=== PATIENT | female | born 1985 | race African-American/Black ===

== ENCOUNTER 2016-10-08 20:51 | Emergency (ER) | payer SELFPAY ==
[~2016-10-08] VITALS: Ht 160 cm; Wt 66.5 kg
[~2016-10-08 20:51] MED LIST: MACR100C PO; PYRI200T4 PO
[2016-10-08 20:54] VITALS: BP 121/67; PULSE 56; RESP 16; TEMP 97.7; O2SAT 100
== END 2016-10-08 21:30 | disposition left against medical advice (07) ==
LOC: NED 20:51
DX: Z53.21 Procedure and treatment not carried out due to patient leaving prior to being seen by health care provider (principal)
CPT/HCPCS: 99281

== ENCOUNTER 2016-10-09 17:44 | Emergency (ER) | payer MEDICAID, OTHER ==
[~2016-10-09] VITALS: Ht 160 cm; Wt 65.0 kg
[2016-10-09 17:50] VITALS: BP 126/65; PULSE 60; RESP 14; TEMP 97.6; O2SAT 97
[2016-10-09 22:02] VITALS: BP 130/77; PULSE 62; RESP 16; O2SAT 98
[2016-10-09] MEDS ORDERED: SODIUM CHLORIDE 0.9% FLUSH 5 ML FLUSH IVF PRN (22:15)
[2016-10-09] MEDS ORDERED: ONDANSETRON HCL 4 MG/2 ML VIAL IVP ONE (22:15)
[2016-10-09 22:35] LABS: BACTERIA, URINE RARE /hpf; BLOOD, URINE MOD (NEG); COMMENT (UR) CULT NOT INDICATED; CULTURE IF INDICATED CULT NOT INDICATED; GLUCOSE,URINE NEG (NEG); KETONE, URINE NEG (NEG); NITRITE,URINE NEG (NEG); PH, URINE 6.5 (5.0-8.5); SQUAMOUS EPITHELIAL CELL URINE 2 /hpf (0-5); URINE COLOR LIGHT-YELLOW (YELLW/STRAW)
[2016-10-09 22:35] LABS: AUTOMATED NEUTROPHIL # 2.8 TH/MM3 (1.8-7.7); BASOPHIL % 0.3 % (0.0-2.0); EOSINOPHIL # 0.2 TH/MM3 (0-0.4); EOSINOPHIL % 2.5 % (0.0-4.0); HEMATOCRIT 35.4 % (35.0-46.0); HEMO FLAGS DIFF FINAL; LYMPHOCYTE # 3.5 TH/MM3 (1.0-4.8); MEAN CELL VOLUME 90.4 FL (80.0-100.0); MEAN CORPUSCULAR HEMOGLOBIN 30.8 PG (27.0-34.0); MEAN CORPUSCULAR HGB CONC 34.1 % (32.0-36.0); NEUT % 39.2 % (16.0-70.0); PLATELET COUNT 236 TH/MM3 (150-450); RED BLOOD COUNT 3.91 MIL/MM3 (4.00-5.30); RED CELL DISTRIBUTION WIDTH 12.9 % (11.6-17.2); WHITE BLOOD COUNT 7.2 TH/MM3 (4.0-11.0)
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
[2016-10-09 22:43] LABS: AMPHETAMINE, URINE NEG (NEG); BARBITURATES, URINE NEG (NEG); COCAINE, URINE NEG (NEG)
[2016-10-09 22:57] LABS: BICARBONATE 26.9 MEQ/L (21.0-32.0); POTASSIUM 3.6 MEQ/L (3.5-5.1)
--- NOTE | 2016-10-09 23:45 | PD ---
Data Data Last Documented VS Vital Signs Date Time Temp Pulse Resp B/P Pulse Ox O2 Delivery O2 Flow Rate FiO2 10/09/16 22:02 62 16 130/77 98 Room Air 10/09/16 17:50 97.6 Orders Ed Urine Pregnancytest Poc (10/09/16 18:18) Beta Hcg (Quant/Titer) (10/09/16 22:03) Complete Blood Count With Diff (10/09/16 22:03) Basic Metabolic Panel (Bmp) (10/09/16 22:03) Complete Rh (10/09/16 22:03) Urinalysis - C+S If Indicated (10/09/16 22:03) Iv Access Insert/Monitor (10/09/16 22:03) Ecg Monitoring (10/09/16 22:03) Sodium Chloride 0.9% Flush (Ns Flush) (10/09/16 22:15) Ondansetron Inj (Zofran Inj) (10/09/16 22:15) Drug Screen, Random Urine (10/09/16 22:26) Us Pelvis (Ques Pr/Ect)W Trans (10/09/16 ) Labs Laboratory Tests Test 10/09/16 10/09/16 10/09/16 18:20 22:13 22:14 Urine Color LIGHT-YELLOW Urine Turbidity CLEAR Urine pH 6.5 Urine Specific [place] 1.009 Urine Protein NEG mg/dL Urine Glucose (UA) NEG mg/dL Urine Ketones NEG mg/dL Urine Occult Blood MOD Urine Nitrite NEG Urine Bilirubin NEG Urine Urobilinogen LESS THAN 2.0 MG/DL Urine Leukocyte Esterase TRACE Urine RBC 2 /hpf Urine WBC 2 /hpf Urine Squamous Epithelial 2 /hpf Cells Urine Bacteria RARE /hpf Microscopic Urinalysis Comment CULT NOT INDICATED Urine Opiates Screen POS Urine Barbiturates Screen NEG Urine Amphetamines Screen NEG Urine Benzodiazepines Screen NEG Urine Cocaine Screen NEG Urine Cannabinoids Screen NEG White Blood Count 7.2 TH/MM3 Red Blood Count 3.91 MIL/MM3 Hemoglobin 12.1 GM/DL Hematocrit 35.4 % Mean Corpuscular Volume 90.4 FL Mean Corpuscular Hemoglobin 30.8 PG Mean Corpuscular Hemoglobin 34.1 % Concent Red Cell Distribution Width 12.9 % Platelet Count 236 TH/MM3 Mean Platelet Volume 8.2 FL Neutrophils (%) (Auto) 39.2 % Lymphocytes (%) (Auto) 49.0 % Monocytes (%) (Auto) 9.0 % Eosinophils (%) (Auto) 2.5 % Basophils (%) (Auto) 0.3 % Neutrophils # (Auto) 2.8 TH/MM3 Lymphocytes # (Auto) 3.5 TH/MM3 Monocytes # (Auto) 0.6 TH/MM3 Eosinophils # (Auto) 0.2 TH/MM3 Basophils # (Auto) 0.0 TH/MM3 CBC Comment DIFF FINAL Differential Comment Sodium Level 140 MEQ/L Potassium Level 3.6 MEQ/L Chloride Level 105 MEQ/L Carbon Dioxide Level 26.9 MEQ/L Anion Gap 8 MEQ/L Blood Urea Nitrogen 12 MG/DL Creatinine 0.77 MG/DL Estimat Glomerular Filtration 107 ML/MIN Rate Random Glucose 66 MG/DL Calcium Level 8.5 MG/DL Human Chorionic Gonadotropin, 25840 MIU/ML Quant Blood Type O POSITIVE Rho(D) Type POSITIVE MDM Medical Record Reviewed: Yes Supervised Visit with KAT: Yes Narrative Course CBC & BMP Diagram 10/09/16 22:14 Beta hCG 12,508 Urine toxicology positive for opiates Urinalysis shows bacteriuria US: 1. intrauterine gestational sac contains a yolk sac with no visualized pole or heart rate; 2. recommendation for serial hCG and sonographic follow up. No residential assistant fertilization technique was employed for this . The patient was educated regarding pelvic rest precautions. Return precautions discussed. Follow up plans discussed in specific detail. Patient verbalized understanding. Diagnosis Primary Impression: Threatened miscarriage in early Additional Impression: Asymptomatic bacteriuria Referrals: Juana Jeffrey MD 2 days Follow up for repeat US and/or beta HCG Additional Instruction: You have a choice when it comes to health care, and we are glad that you chose [facility]. Hopefully, we have met your expectations on today's visit. You are welcome to return to [facility] at any time, as we are committed to meeting the health care needs of our community. Med/Other Pt SpecificInfo: Prescription(s) given Scripts Multivit-Min W/Fe-FA ( [place])1 Tab Tab1 Mg PO QD 90 Days Ref 3 Prov:Markell Nowak MD 10/10/16 Nitrofurantoin Monohydrate Macrocrystals (Macrobid)100 Mg Hzr002 Mg PO BID 5 Days Ref 0 Prov:Markell Nowak MD 10/10/16 Disposition: 01 DISCHARGE HOME Condition: Stable Markell Nowak MD Oct 09, 2016 23:45
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
[2016-10-10] MEDS ORDERED: MACR100C2 PO (00:05)
[2016-10-10] MEDS ORDERED: PRENTAB36 PO (00:05)
== END 2016-10-10 00:32 | disposition home or self-care (01) ==
LOC: NEPC 17:44
DX: O20.0 Threatened abortion (principal); R82.71 Bacteriuria; E78.00 Pure hypercholesterolemia, unspecified
CPT/HCPCS: 76700; 76817; 80048; 80307; 81001; 84702; 84703; 85025; 86901; 99284; P9612

== ENCOUNTER 2016-10-25 08:25 | Emergency (ER) | payer MEDICAID ==
[~2016-10-25 08:25] MED LIST changes: -MACR100C PO; +MACR100C2 PO; +PRENTAB36 PO; -PYRI200T4 PO
[2016-10-25 08:28] VITALS: BP 127/58; PULSE 58; RESP 16; TEMP 98.6; O2SAT 98
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
[2016-10-25 09:15] LABS: AUTOMATED NEUTROPHIL # 2.5 TH/MM3 (1.8-7.7); BASOPHIL % 0.4 % (0.0-2.0); EOSINOPHIL # 0.1 TH/MM3 (0-0.4); EOSINOPHIL % 2.4 % (0.0-4.0); HEMATOCRIT 37.8 % (35.0-46.0); HEMO FLAGS DIFF FINAL; LYMPH % 46.3 % (9.0-44.0); LYMPHOCYTE # 2.7 TH/MM3 (1.0-4.8); MEAN CELL VOLUME 89.9 FL (80.0-100.0); MEAN CORPUSCULAR HEMOGLOBIN 31.8 PG (27.0-34.0); MEAN CORPUSCULAR HGB CONC 35.4 % (32.0-36.0); MONO % 7.9 % (0.0-8.0); PLATELET COUNT 280 TH/MM3 (150-450); RED CELL DISTRIBUTION WIDTH 13.1 % (11.6-17.2); WHITE BLOOD COUNT 5.7 TH/MM3 (4.0-11.0)
[2016-10-25 09:45] LABS: BETA HCG QUANT 11390 MIU/ML (0-5)
[2016-10-25] MEDS ORDERED: METHYLERGONOVINE MALEATE 0.2 MG TAB PO ONE (10:15)
[2016-10-25] MEDS ORDERED: IBUPROFEN 800 MG TAB PO ONE (10:15)
[2016-10-25] MEDS ORDERED: IBUP-232 PO (10:16)
[2016-10-25] MEDS ORDERED: METH-703 PO (10:16)
[2016-10-25] MEDS ORDERED: HYDR-3516 PO (10:16)
== END 2016-10-25 10:46 | disposition home or self-care (01) ==
LOC: NEPE 08:25
DX: O03.4 Incomplete spontaneous abortion without complication (principal); Z3A.08 8 weeks gestation of pregnancy
CPT/HCPCS: 84702; 85025; 99284

== ENCOUNTER 2017-01-29 18:32 | Emergency (ER) | payer MEDICAID ==
[~2017-01-29] VITALS: Ht 157.5 cm; Wt 66.0 kg
[~2017-01-29 18:32] MED LIST changes: +HYDR-3516 PO; +IBUP-232 PO; -MACR100C2 PO; +METH-703 PO; -PRENTAB36 PO
[2017-01-29 18:35] VITALS: BP 172/92; PULSE 84; RESP 14; TEMP 98.1; O2SAT 98
--- NOTE | 2017-01-29 18:42 | PD ---
Physical Exam Date Seen by Provider: January 29, 2017 Time Seen by Provider: 18:41 Narrative 31 yo female here for evaluation of vaginal bleeding. Going on for 2 weeks. Unusual for her. No chest pain or SOB. some cramping. No discharge other than blood. No allergies. Has not seen anybody for this. Vitals sign stable. Patient awaiting bed placement. Data Data Last Documented VS Vital Signs Date Time Temp Pulse Resp B/P Pulse Ox O2 Delivery O2 Flow Rate FiO2 01/29/17 18:35 98.1 84 14 172/92 98 MDM Medical Record Reviewed: Yes Supervised Visit with KAT: No David Aldana January 29, 2017 18:42
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
[2017-01-29 20:55] LABS: BETA HCG QUANT 978 MIU/ML (0-5)
[2017-01-29 21:52] LABS: CHLAMYDIA PCR NOT DETECTED (NOT DETECT); NEISSERIA PCR NOT DETECTED (NOT DETECT)
[2017-01-29 23:01] VITALS: BP 123/71; PULSE 80; RESP 16; O2SAT 98
--- NOTE | 2017-01-30 08:24 | RADRPT ---
EXAM DATE/TIME: 01/29/2017 23:03 [facility] COMPARISON: No previous studies available for comparison. INDICATIONS : Vaginal bleeding. LAB(S): Beta-hC MEDICAL HISTORY : Hypercholesterolemia. . Heart murmur. SURGICAL HISTORY : No documented surgeries. ENCOUNTER: Initial ACUITY: 2 weeks PAIN SCORE: 5/10 LOCATION: Bilateral pelvis MEASUREMENTS: UTERUS: 8.7 x 5.5 x 4.1 cm ENDOMETRIAL STRIPE: 4 mm RIGHT OVARY: 3.7 x 3.3 x 2.4 cm LEFT OVARY: 2.8 x 1.9 x 1.5 cm FREE FLUID: Yes Trace in posterior cul de sac. CROWN RUMP LENGTH: Non visualized. = WKS DAYS FHR: Non visualized. BPM FINDINGS: UTERUS: There is no evidence of intrauterine gestation. RIGHT OVARY: Simple appearing 2.7 cm right ovarian cyst. LEFT OVARY: Ovary contains no mass or significant cystic lesion. MISCELLANEOUS: Small volume of free cul-de-sac fluid CONCLUSION: No evidence of intrauterine gestation. Shayne Jacobo MD on January 29, 2017 at 23:54 Board Certified Radiologist. This report was verified electronically.
== END 2017-01-30 00:43 | disposition home or self-care (01) ==
LOC: NEPD 18:32
DX: O20.0 Threatened abortion (principal); Z3A.00 Weeks of gestation of pregnancy not specified
CPT/HCPCS: 76700; 76817; 84702; 84703; 87210; 87491; 87591

== ENCOUNTER 2017-02-19 09:37 | Emergency (ER) | payer MEDICAID ==
[~2017-02-19] VITALS: Ht 157.5 cm; Wt 67.0 kg
[~2017-02-19 09:37] MED LIST changes: -METH-703 PO
[2017-02-19 09:39] VITALS: BP 146/75; PULSE 57; RESP 16; TEMP 98.8; O2SAT 99
--- NOTE | 2017-02-19 10:27 | PD ---
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 Patient is 5 para 4 AB 0. Patient's not sure of her last menstruation period. Patient was seen in emergency room January 29, 2017 after she has pelvic cramping vaginal bleeding for 2 weeks. Diagnosis was threatened AB. Patient states that she had persistent pelvic pain and vaginal bleeding since then. Patient states that the pelvic pain get worse this morning. Patient denies any headache. Patient denies any chest pain or shortness of breath. Patient denies coughing congestion fever chills. Patient states the pain cramping pain and sharp pain localized to lower abdomen pelvic area. Patient states that the pain radiates to the back. On a scale of 1-10 the pain is an 8. Patient's blood type O+. PFSH Past Medical History Heart Rhythm Problems: Yes (hx murmur) Cardiovascular Problems: Yes High Cholesterol: Yes Diabetes: No Diminished Hearing: No Headaches: Yes Heparin Induced Thrombocytopen: No Hypertension: No Immunizations Current: Yes Migraines: Yes Tetanus Vaccination: > 5 Years Influenza Vaccination: No ?: LMP: 02/19/17 : 5 Para: 4 Miscarriage: 1 Past Surgical History Surgical History: No Previous Surgery Gynecologic Surgery: Yes (STITCH ON VAGINA (ATTACKED)) Family History Family Myocardial Infarction: Yes (brotherpassed at [address] [place] [address] heart disease) Social History Alcohol Use: Yes ([facility]) Tobacco Use: Yes (1/2 ppd) Substance Use: No Allergies-Medications (Allergen,Severity, Reaction): Coded Allergies: No Known Allergies (Verified , 02/19/17) Reported Meds & Prescriptions Reported Meds & Active Scripts Active Review of Systems General / Constitutional: No: Fever Eyes: No: Visual changes HENT: No: Headaches Cardiovascular: No: Chest Pain or Discomfort Respiratory: No: Shortness of Breath Gastrointestinal: Positive: Abdominal Pain Genitourinary: Positive: Pelvic Pain, Vaginal Bleeding, No: Dysuria Musculoskeletal: No: Pain Skin: No Rash Neurologic: No: Weakness Psychiatric: No: Depression Endocrine: No: Polydipsia Hematologic/Lymphatic: No: Easy Bruising Physical Exam Narrative GENERAL: Well-nourished, well-developed patient. SKIN: Focused skin assessment warm/dry. HEAD: Normocephalic. EYES: No scleral icterus. No injection or drainage. NECK: Supple, trachea midline. No JVD or lymphadenopathy. CARDIOVASCULAR: Regular rate and rhythm without murmurs, gallops, or rubs. RESPIRATORY: Breath sounds equal bilaterally. No accessory muscle use. GASTROINTESTINAL: Abdomen soft, non-tender, nondistended. MUSCULOSKELETAL: No cyanosis, or edema. BACK: Nontender without obvious deformity. No CVA tenderness. GYROSCOPIC INSTRUMENT MECHANIC exam: Patient has small amount of blood in the vaginal vault. The cervix long thick and closed. Uterus is mildly enlarged with mild tenderness on palpation. No adnexal mass or tenderness. Data Data Last Documented VS Vital Signs Date Time Temp Pulse Resp B/P Pulse Ox O2 Delivery O2 Flow Rate FiO2 02/19/17 09:39 98.8 57 16 146/75 99 Orders Beta Hcg (Quant/Titer) (02/19/17 10:15) Complete Blood Count With Diff (02/19/17 10:15) Basic Metabolic Panel (Bmp) (02/19/17 10:15) Us Pelvis (Ques Pr/Ect)W Trans (02/19/17 ) Urinalysis - C+S If Indicated (02/19/17 10:15) Iv Access Insert/Monitor (02/19/17 10:15) Ecg Monitoring (02/19/17 10:15) Labs Laboratory Tests Test 02/19/17 02/19/17 10:00 10:30 Urine Color YELLOW Urine Turbidity CLEAR Urine pH 6.0 Urine Specific [place] 1.021 Urine Protein NEG mg/dL Urine Glucose (UA) NEG mg/dL Urine Ketones NEG mg/dL Urine Occult Blood TRACE Urine Nitrite NEG Urine Bilirubin NEG Urine Urobilinogen LESS THAN 2.0 MG/DL Urine Leukocyte Esterase NEG Urine RBC 1 /hpf Urine WBC 2 /hpf Urine Squamous Epithelial <1 /hpf Cells Urine Mucus FEW /lpf Microscopic Urinalysis Comment CULT NOT INDICATED White Blood Count 7.1 TH/MM3 Red Blood Count 4.47 MIL/MM3 Hemoglobin 13.5 GM/DL Hematocrit 39.5 % Mean Corpuscular Volume 88.3 FL Mean Corpuscular Hemoglobin 30.2 PG Mean Corpuscular Hemoglobin 34.2 % Concent Red Cell Distribution Width 13.1 % Platelet Count 271 TH/MM3 Mean Platelet Volume 7.6 FL Neutrophils (%) (Auto) 42.5 % Lymphocytes (%) (Auto) 46.3 % Monocytes (%) (Auto) 8.1 % Eosinophils (%) (Auto) 2.4 % Basophils (%) (Auto) 0.7 % Neutrophils # (Auto) 3.0 TH/MM3 Lymphocytes # (Auto) 3.3 TH/MM3 Monocytes # (Auto) 0.6 TH/MM3 Eosinophils # (Auto) 0.2 TH/MM3 Basophils # (Auto) 0.0 TH/MM3 CBC Comment DIFF FINAL Differential Comment Sodium Level 138 MEQ/L Potassium Level 3.9 MEQ/L Chloride Level 106 MEQ/L Carbon Dioxide Level 25.2 MEQ/L Anion Gap 7 MEQ/L Blood Urea Nitrogen 7 MG/DL Creatinine 0.72 MG/DL Estimat Glomerular Filtration 115 ML/MIN Rate Random Glucose 87 MG/DL Calcium Level 8.0 MG/DL Human Chorionic Gonadotropin, 2589 MIU/ML Quant MDM Medical Decision Making Medical Screen Exam Complete: Yes Emergency Medical Condition: Yes Interpretation(s) 11:28 AM. CBC within normal limit. BMP within normal limit. Beta hCG 2589. UA is negative. 1416 p.m. Last Impressions Pelvis Ultrasound 02/19/17 0000 Signed Impressions: Service Date/Time: Sunday, February 19, 2017 11:39 - CONCLUSION: 1. Echogenic structure with increased peripheral flow in the posterior cul-de-sac measuring 2.9 x 2.9 cm, concerning for ectopic . 2. No intrauterine . 3. Complex fluid and possible hemorrhage in the endometrial canal. Alec Foster MD Differential Diagnosis Differential diagnosis including threatened AB, incomplete AB, completed AB, ectopic . Narrative Course 31-year-old female with pelvic pain and vaginal bleeding. Patient was seen in emergency room 6 weeks ago and beta-hCG was positive. Patient returned today with increasing pelvic pain and persistent vaginal bleeding. Ultrasound shows ectopic . I spoke with the ED OB. 1505 PM. ED OB physician came down to see patient. Unable to find the patient in the room. Patient left without informing the staff. Diagnosis Primary Impression: Ectopic Qualified Code: O00.90 - Ectopic without intrauterine , unspecified location Carlos Santacruz MD Feb 19, 2017 10:27
[2017-02-19 10:45] LABS: BASOPHIL % 0.7 % (0.0-2.0); EOSINOPHIL # 0.2 TH/MM3 (0-0.4); EOSINOPHIL % 2.4 % (0.0-4.0); HEMATOCRIT 39.5 % (35.0-46.0); HEMO FLAGS DIFF FINAL; LYMPH % 46.3 % (9.0-44.0); LYMPHOCYTE # 3.3 TH/MM3 (1.0-4.8); MEAN CELL VOLUME 88.3 FL (80.0-100.0); MEAN CORPUSCULAR HEMOGLOBIN 30.2 PG (27.0-34.0); MEAN CORPUSCULAR HGB CONC 34.2 % (32.0-36.0); MONO % 8.1 % (0.0-8.0); NEUT % 42.5 % (16.0-70.0); PLATELET COUNT 271 TH/MM3 (150-450); RED BLOOD COUNT 4.47 MIL/MM3 (4.00-5.30); RED CELL DISTRIBUTION WIDTH 13.1 % (11.6-17.2); WHITE BLOOD COUNT 7.1 TH/MM3 (4.0-11.0)
[2017-02-19 10:47] LABS: BLOOD, URINE TRACE (NEG); COMMENT (UR) CULT NOT INDICATED; CULTURE IF INDICATED CULT NOT INDICATED; GLUCOSE,URINE NEG (NEG); KETONE, URINE NEG (NEG); MUCUS URINE FEW /lpf (OCC); NITRITE,URINE NEG (NEG); SQUAMOUS EPITHELIAL CELL URINE <1 /hpf (0-5); URINE COLOR YELLOW (YELLW/STRAW)
[2017-02-19 11:02] LABS: BICARBONATE 25.2 MEQ/L (21.0-32.0); POTASSIUM 3.9 MEQ/L (3.5-5.1)
--- NOTE | 2017-02-19 14:04 | RADRPT ---
EXAM DATE/TIME: 02/19/2017 11:39 [facility] COMPARISON: No previous studies available for comparison. INDICATIONS : Vaginal bleeding. LAB(S): Beta-hC,589 MEDICAL HISTORY : Hypercholesterolemia. . Heart murmur. SURGICAL HISTORY : Stitches on vagina. ENCOUNTER: Subsequent ACUITY: 1 month PAIN SCORE: 4/10 LOCATION: Bilateral pelvis MEASUREMENTS: TRANSVAGINAL: UTERUS: 8.8 x 5.7 x 4.0 cm ENDOMETRIAL STRIPE: 7 mm RIGHT OVARY: 3.0 x 2.0 x 1.3 cm LEFT OVARY: 2.4 x 1.7 x 1.1 cm FREE FLUID: Yes CROWN RUMP LENGTH: 1.72 cm = 5 WKS 5 DAYS FINDINGS: UTERUS: The myometrium has homogeneous echotexture without mass. Complex fluid in the endometrial canal. No yolk sac or pole. RIGHT OVARY: Ovary contains no mass or significant cystic lesion. LEFT OVARY: Ovary contains no mass or significant cystic lesion. MISCELLANEOUS: Echogenic structure with increased peripheral flow is noted within the posterior cul-de-sac measuring 2.9 x 2.9 cm. There is free fluid in the cul-de-sac. CONCLUSION: 1. Echogenic structure with increased peripheral flow in the posterior cul-de-sac measuring 2.9 x 2.9 cm, concerning for ectopic . 2. No intrauterine . 3. Complex fluid and possible hemorrhage in the endometrial canal. Alec Foster MD on February 19, 2017 at 13:57 Board Certified Radiologist. This report was verified electronically.
[2017-02-19] MEDS ORDERED: HYDR-3533 PO (22:15)
== END 2017-02-19 15:11 | disposition left against medical advice (07) ==
LOC: NEPD 09:37
DX: O00.90 Unspecified ectopic pregnancy without intrauterine pregnancy (principal); O26.899 Other specified pregnancy related conditions, unspecified trimester; R10.2 Pelvic and perineal pain; O46.90 Antepartum hemorrhage, unspecified, unspecified trimester; E78.00 Pure hypercholesterolemia, unspecified; F17.200 Nicotine dependence, unspecified, uncomplicated; Z86.79 Personal history of other diseases of the circulatory system; Z86.69 Personal history of other diseases of the nervous system and sense organs; Z53.20 Procedure and treatment not carried out because of patient's decision for unspecified reasons; Z3A.00 Weeks of gestation of pregnancy not specified
CPT/HCPCS: 76700; 76817; 80048; 81001; 84702; 85025; 99284

== ENCOUNTER 2017-02-19 18:42 | Emergency (ER) | payer MEDICAID ==
[~2017-02-19] VITALS: Ht 157.5 cm; Wt 68.0 kg
[2017-02-19 18:48] VITALS: BP 168/84; PULSE 88; RESP 17; TEMP 98.2; O2SAT 99
[2017-02-19] MEDS ORDERED: SODIUM CHLOR 0.9% 1000 ML INJ 1,000 ML IV ONE (20:30)
--- NOTE | 2017-02-19 20:33 | PD ---
HPI Chief Complaint: Rn First Assist Problem/Complaint Time Seen by Provider: 19:55 Travel History International Travel<30 days: No Contact w/Intl Traveler<30days: No Traveled to known affect area: No History of Present Illness HPI The patient is a 31 year old female who presents to the [facility] emergency department with a history of earlier today in the emergency department being diagnosed with a suspected ectopic . The patient was in her room awaiting evaluation by the OB physician from the OB ED when the patient eloped. 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 The patient reports to me a recent history of over the last 6 weeks having intermittent vaginal bleeding/spotting. On January 29 she was evaluated in the emergency department and diagnosed as being with a beta hCG that was 978. 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 She reports that today she was awakened from sound sleep with severe abdominal pain and bilateral lower quadrants of the abdomen. She reports the pain is sharp in character and radiates around to the low back bilaterally. She denies having any nausea or vomiting today. She denies having any diarrhea. She reports that she has been moving her bowels regularly. She is unsure when her last mental cycle was as an October she also had a miscarriage. The patient denies any recent fevers cough, congestion, neck pain, chest pain, shortness of breath, urinary symptoms, or neurologic symptoms. [facility] Past Medical History Narrative Medical The patient's past medical history is significant for having a heart murmur. Heart Rhythm Problems: Yes (hx murmur) Cardiovascular Problems: Yes High Cholesterol: Yes Diabetes: No Diminished Hearing: No Headaches: Yes Heparin Induced Thrombocytopen: No Hypertension: No Immunizations Current: Yes Migraines: Yes Tetanus Vaccination: < 5 Years Influenza Vaccination: No ?: : 5 Para: 4 Miscarriage: 1 Ectopic : Yes Past Surgical History Narrative Surgical The patient's past surgical history is reportedly none. Gynecologic Surgery: Yes (STITCH ON VAGINA (ATTACKED)) Family History Family Myocardial Infarction: Yes (brotherpassed at 27heartattackhad heart disease) Social History Alcohol Use: Yes (occ) Tobacco Use: Yes (1/2 ppd) Substance Use: No Allergies-Medications (Allergen,Severity, Reaction): Coded Allergies: No Known Allergies (Verified , 6/20/17) Reported Meds & Prescriptions Reported Meds & Active Scripts Active No Active Prescriptions or Reported Medications Review of Systems Except as stated in HPI: all other systems reviewed are Neg General / Constitutional: No: Fever Eyes: No: Visual changes HENT: No: Headaches Cardiovascular: No: Chest Pain or Discomfort Respiratory: No: Shortness of Breath Gastrointestinal: Positive: Abdominal Pain, No: Nausea, Vomiting, Diarrhea, Changes in Bowel Habits, Loss of Appetite Genitourinary: Positive: Pelvic Pain, Vaginal Bleeding, No: Urgency, Frequency , Dysuria Musculoskeletal: No: Pain Skin: No Rash Neurologic: No: Weakness Psychiatric: No: Depression Endocrine: No: Polydipsia Hematologic/Lymphatic: No: Easy Bruising Physical Exam Narrative General: The patient is a well-developed well-nourished female in no acute distress. Head and Neck exam: Head is normocephalic atraumatic. Eyes: EOMI, pupils are equal round and reactive to light. Nose: Midline septum with pink mucous membranes Mouth: Dentition unremarkable. Moist mucus membranes. Posterior oropharynx is not erythematous. No tonsillar hypertrophy. Uvula midline. Airway patent. Neck: No palpable lymphadenopathy. No nuchal rigidity. No thyromegaly. Cardiovascular: Regular rate and rhythm without murmurs, gallops, or rubs. Lungs: Clear to auscultation bilaterally. No wheezes, rhonchi, or rales. Abdomen: Soft, with tenderness on palpation reported in bilateral lower quadrants of the abdomen in the suprapubic area, no other tenderness on palpation of the upper quadrants of the abdomen. No guarding, rebound, or rigidity. Normal bowel sounds are audible. No tenderness on palpation of McBurney's point. Negative Fairton sign. Extremities: No clubbing, cyanosis, or edema. 2+ pulses in all 4 extremities. No calf tenderness on palpation. Back: No costovertebral angle tenderness to palpation. Neurologic Exam: Grossly nonfocal. Skin Exam: No rash noted. Intact skin that is warm and dry. Data Data Last Documented VS Vital Signs Date Time Temp Pulse Resp B/P Pulse Ox O2 Delivery O2 Flow Rate FiO2 02/19/17 18:48 98.2 88 17 168/84 99 Orders Complete Blood Count With Diff (02/19/17 20:11) Iv Access Insert/Monitor (02/19/17 20:11) Ecg Monitoring (02/19/17 20:11) Oximetry (02/19/17 20:11) Type And Screen (02/19/17 20:11) Red Blood Cells (Rbc) (02/19/17 20:11) Sodium Chlor 0.9% 1000 Ml Inj (Ns 1000 M (02/19/17 20:30) Hepatic Functional Panel (02/19/17 20:46) Methotrexate Pf Inj (Methotrexate Pf Inj (02/19/17 21:30) Morphine Inj (Morphine Inj) (02/19/17 21:00) Labs Laboratory Tests Test 02/19/17 02/19/17 10:30 20:25 Total Bilirubin 0.3 MG/DL Direct Bilirubin 0.1 MG/DL Indirect Bilirubin 0.2 MG/DL Aspartate Amino Transf 21 U/L (AST/SGOT) Alanine Aminotransferase 19 U/L (ALT/SGPT) Alkaline Phosphatase 60 U/L Total Protein 7.6 GM/DL Albumin 4.4 GM/DL White Blood Count 7.7 TH/MM3 Red Blood Count 4.10 MIL/MM3 Hemoglobin 12.5 GM/DL Hematocrit 36.1 % Mean Corpuscular Volume 87.9 FL Mean Corpuscular Hemoglobin 30.4 PG Mean Corpuscular Hemoglobin 34.6 % Concent Red Cell Distribution Width 13.0 % Platelet Count 283 TH/MM3 Mean Platelet Volume 8.2 FL Neutrophils (%) (Auto) 40.1 % Lymphocytes (%) (Auto) 49.6 % Monocytes (%) (Auto) 7.3 % Eosinophils (%) (Auto) 2.5 % Basophils (%) (Auto) 0.5 % Neutrophils # (Auto) 3.1 TH/MM3 Lymphocytes # (Auto) 3.8 TH/MM3 Monocytes # (Auto) 0.6 TH/MM3 Eosinophils # (Auto) 0.2 TH/MM3 Basophils # (Auto) 0.0 TH/MM3 CBC Comment DIFF FINAL Differential Comment Blood Type O POSITIVE Antibody Screen NEGATIVE Crossmatch Leukocyte-Reduced Red Blood Cells Blood Bank Comment MDM Medical Decision Making Medical Screen Exam Complete: Yes Emergency Medical Condition: Yes Differential Diagnosis Threatened miscarriage, versus ectopic , versus molar Narrative Course During the course of the patients emergency department visit, the patients history, examination, and differential diagnosis were reviewed with the patient. The patient had IV access obtained and blood work sent for analysis. The patient was placed on a court monitor with oximetry and blood pressure monitoring. A call was placed out to the OB ED physician. I spoke to Dr. Farnsworth at 8:10 PM who did agree to see the patient in consultation. The patient's electronic medical record was reviewed. His CBC was ordered, type and screen was ordered with 2 units of packed red blood cells placed on hold. The patient was initially provided normal saline a 1 L IV fluid bolus. The patients laboratory studies were reviewed from earlier today and show white count of 7.1, hemoglobin 13.5, platelets 271 with lymphocytes 46.3, monocytes 8.1, basic metabolic profile is unremarkable, calcium 8.0, quantitative beta hCG is 2589. Urinalysis shows trace occult blood, no other acute abnormality. Radiology studies were reviewed from earlier today and reveal an ultrasound that shows echogenic structure with increased peripheral flow in the posterior cul-de-sac measuring 2.9 x 2.9 cm concerning for an ectopic . No intrauterine , complex fluid and possible hemorrhage in the endometrial canal. Dr. Farnsworth came down and evaluated the patient. She ordered methotrexate for the patient. As the patient had not had a baseline level of liver function testing , she also ordered this. The patient's liver function tests were found to be within normal limits. The patient's repeat CBC was noted to show white count of 7.7, hemoglobin 12.5, platelets 283 with 49.6 lymphocytes. The methotrexate was administered as ordered by the commercial art instructor. The patient was instructed regarding follow-up in the emergency department for repeat quantitative beta hCGs. The patient will be discharged home with a prescription for Lortab. The patient is resting comfortably and feels better, is alert and in no distress. The patients results and examination findings were discussed with the patient. The repeat examination is unremarkable and benign. The history, exam, diagnostic testing, and current condition do not suggest any significant pathology to warrant further testing, continued ED treatment, admission, or surgical evaluation at this point. The vital signs have been stable. The patient does not have uncontrollable pain, intractable vomiting, or other significant symptoms. The patient's condition is stable and appropriate for discharge. The patient will pursue further outpatient evaluation with a primary care physician or other designated or consulting physician as indicated in the discharge instructions. The patient expressed understanding and was agreeable with this plan. Diagnosis Primary Impression: Ectopic Qualified Code: O00.80 - Other ectopic without intrauterine Referrals: emergency department Patient is instructed to follow back up with the emergency department for repeat quantitative beta hCG in 4 days Patient Instructions: Ectopic (ED), General Instructions Additional Instructions: The patient will need to follow back up in the emergency department on day 4 () and day 7 (02/25). She is instructed to follow back up immediately if she has increasing abdominal pain. Med/Other Pt SpecificInfo: Prescription(s) given Scripts Hydrocodone-Acetaminophen (Lortab)5-325 Mg Tab1 Tab PO Q6H PRN (PAIN) #12 TAB Ref 0 Prov:Lotus Koenig MD 02/19/17 Disposition: 01 DISCHARGE HOME Condition: Stable Lotus Koenig MD Feb 19, 2017 20:33
[2017-02-19] MEDS ORDERED: MORPHINE SULFATE 4 MG/ML INJ IV PUSH ONE (21:00)
[2017-02-19 21:16] LABS: AUTOMATED NEUTROPHIL # 3.1 TH/MM3 (1.8-7.7); BASOPHIL % 0.5 % (0.0-2.0); EOSINOPHIL # 0.2 TH/MM3 (0-0.4); EOSINOPHIL % 2.5 % (0.0-4.0); HEMATOCRIT 36.1 % (35.0-46.0); HEMO FLAGS DIFF FINAL; LYMPH % 49.6 % (9.0-44.0); LYMPHOCYTE # 3.8 TH/MM3 (1.0-4.8); MEAN CELL VOLUME 87.9 FL (80.0-100.0); MEAN CORPUSCULAR HEMOGLOBIN 30.4 PG (27.0-34.0); MEAN CORPUSCULAR HGB CONC 34.6 % (32.0-36.0); MONO % 7.3 % (0.0-8.0); NEUT % 40.1 % (16.0-70.0); PLATELET COUNT 283 TH/MM3 (150-450); WHITE BLOOD COUNT 7.7 TH/MM3 (4.0-11.0)
--- NOTE | 2017-02-19 21:21 | PD.CONS ---
HPI Chief Complaint lower abdominal pain Date Seen: Feb 19, 2017 Time Seen: 20:30 Travel History International Travel<30 Days: No Contact w/Intl Traveler<30Days: No Known Affected Area: No History of Present Illness HPI Patient is a 31 y/o who presents to ED with bilateral lower abdominal/ back pain, awoke this morning with pain. Pain is constant but intensity fluctuates. Pt reports light vag bleeding for past 6 weeks. Pt seen in ED on for bleeding and had + preg test. beta quant at that time was 978. Pt reports continued vag bleeding (light spotting) since that visit. Presents today with continued bleeding and pain as described above. Today quant is 2578 , abnormal rise in 3 weeks. Para: 4 : 6 Last Menstrual Period: January 15, 2017 Miscarriage: 1 History Past Medical History Medical History: Denies Significant Hx Obstetric History Obstetric History 2004 FTSVD 2006 FTSVD 2007 FTSVD 2014 FTSVD 2017 SAB Past Surgical History Surgical History: No Previous Surgery Family History Family History: Negative Social History Alcohol Use: No Tobacco Use: Yes (1/2 ppd) Substance Abuse: No Allergies-Medications (Allergen,Severity, Reaction): Coded Allergies: No Known Allergies (Verified , 02/19/17) Home Meds Discontinued Scripts Hydrocodone-Acetaminophen 5-325 mg Tab1 Tab PO Q6H PRN (PAIN) #10 TAB Ref 0 Prov:Amol Brown MD 10/25/16 Ibuprofen 600 Mg [id number] Mg PO Q6H PRN (PAIN SCALE 1 TO 4) #30 TAB Ref 0 Prov:Amol Brown MD 10/25/16 Review of Systems General / Constitutional: No: Fever, Weight Gain, Weight Loss, Chills, Other Eyes: No: Diploplia, Blurred Vision, Visual changes, Pain, Photophobia, Other HENT: No: Headaches, Vertigo, Dental Difficulties, Lightheadedness, Other Cardiovascular: No: Irregular Rhythm, Chest Pain or Discomfort, Palpitations, Tachycardia, Syncope, Varicosities, Edema, Cyanosis, Other Respiratory: No: Cough, Short of Breath, Wheezing, Other Gastrointestinal: Abdominal Pain Genitourinary: Vaginal Bleeding Musculoskeletal: No: Limited ROM, Weakness, Cramping, Edema, Pain, Other Skin: No Rash, No Itching, No Dryness, No Lumps, No Change in Pigmentation, No Change in Nails, No Alopecia, No Lesions, No Breast Lumps, No Breast Tenderness , No Breast Swelling, No Other Neurologic: No: Weakness, Dizziness, Syncope, Focal Abnormalities, Coordination Problem, Headache, Slurred Speech, Seizures, Other Psychiatric: No: Anxiety, Depression, Suicidal Ideations, Disorder of Thought, Mood Disorder, Substance Abuse, Homicidal Ideation, Other Endocrine: No: Heat Intolerance, Cold Intolerance, Polydipsia, Polyuria, Other Hematologic/Lymphatic: No Easy Bruising, No Lymph Node Enlargement, No Other Physical Exam Vital Signs Date Time Temp Pulse Resp B/P Pulse Ox O2 Delivery O2 Flow Rate FiO2 02/19/17 18:48 98.2 88 17 168/84 99 Narrative GENERAL: Well-nourished, well-developed patient. SKIN: Warm and dry. HEAD: Normocephalic and atraumatic. EYES: No scleral icterus. No injection or drainage. ENT: No nasal drainage noted. Mucous membranes pink. Airway patent. NECK: Supple, trachea midline. No JVD. CARDIOVASCULAR: Regular rate and rhythm without murmurs, gallops, or rubs. RESPIRATORY: Breath sounds equal bilaterally. No accessory muscle use. ABDOMEN/GI: Abdomen soft, mildly tender bilateral lower quadrants, bowel sounds present, no rebound, no guarding EXTREMITIES: No cyanosis or edema. BACK: Nontender without obvious deformity. No CVA tenderness. NEUROLOGICAL: Awake and alert. Motor and sensory grossly within normal limits. Five out of 5 muscle strength in all muscle groups. Normal speech. Data Data Vital Signs Reviewed: Yes Orders Complete Blood Count With Diff (02/19/17 20:11) Iv Access Insert/Monitor (02/19/17 20:11) Ecg Monitoring (02/19/17 20:11) Oximetry (02/19/17 20:11) Type And Screen (02/19/17 20:11) Red Blood Cells (Rbc) (02/19/17 20:11) Sodium Chlor 0.9% 1000 Ml Inj (Ns 1000 M (02/19/17 20:30) Hepatic Functional Panel (02/19/17 20:46) Methotrexate Pf Inj (Methotrexate Pf Inj (02/19/17 21:00) Morphine Inj (Morphine Inj) (02/19/17 21:00) Labs Laboratory Tests Test 02/19/17 20:25 Blood Type O POSITIVE ultrasound report impression and images reviewed pt with 2 x 2 cm mass in posterior cul de sac concerning for ectopic no IUP seen MDM Medical Record Reviewed: Yes (all ER records reviewed) Narrative Course / MDM 31 y/o with abnomally rising hcg, abdominal pain, and abnormal u/s, probable ectopic (versus abnormal IUP) discussed management options with patient which include methotrexate therapy versus surgical management. discussed risks/benefits of each therapy. patient desires medical management. d/w pt that there is a risk of medication failure. stressed the importance of following hcg levels until negative. advised pt that if she is unable to comply with follow up, then medical management is not a good option. Pt states she is willing to comply with follow up. d/w pt that untreated ectopic or medication failure can have very significant risks including massive hemorrhage and . pt voiced understanding. Will give mtx now. communicated to ED physician plan for follow up need repeat beta hcg on day 4 (02/22) and day 7 (02/25). expect decrease in beta hcg of >15% between day 4 and 7. pt advised to return to ED if worsening pain Scripts No Active Prescriptions or Reported Meds Viki Farnsworth MD Feb 19, 2017 21:21
[2017-02-19] MEDS ORDERED: METHOTREXATE SOD PF 50 MG/2 ML VIAL IM ONE (21:30)
[2017-02-19 21:58] LABS: INDIRECT BILIRUBIN 0.2 MG/DL (0.0-0.8); TOTAL BILIRUBIN ADULT 0.3 MG/DL (0.2-1.0)
[2017-02-19] MEDS ORDERED: HYDR-3533 PO (22:15)
[2017-02-19] MEDS ORDERED: ONDANSETRON HCL 4 MG/2 ML VIAL IV ONE (22:15)
== END 2017-02-19 22:30 | disposition home or self-care (01) ==
LOC: NEPE 18:42
DX: O00.80 Other ectopic pregnancy without intrauterine pregnancy (principal); E78.00 Pure hypercholesterolemia, unspecified; F17.200 Nicotine dependence, unspecified, uncomplicated; Z86.79 Personal history of other diseases of the circulatory system; Z86.69 Personal history of other diseases of the nervous system and sense organs; Z3A.00 Weeks of gestation of pregnancy not specified
CPT/HCPCS: 80076; 85025; 86850; 86900; 86901; 86920; 96361; 96372; 96374; 99284; J2270; J7030; J9250

== ENCOUNTER 2017-02-22 18:37 | Emergency (ER) | payer MEDICAID ==
[~2017-02-22] VITALS: Ht 157.5 cm; Wt 70.0 kg
[~2017-02-22 18:37] MED LIST changes: -HYDR-3516 PO; +HYDR-3533 PO; -IBUP-232 PO
[2017-02-22 18:39] VITALS: BP 154/74; PULSE 58; RESP 20; TEMP 97.9; O2SAT 100
== END 2017-02-22 22:24 | disposition left against medical advice (07) ==
LOC: NED 18:37
DX: N93.9 Abnormal uterine and vaginal bleeding, unspecified (principal); Z53.21 Procedure and treatment not carried out due to patient leaving prior to being seen by health care provider
CPT/HCPCS: 99281

== ENCOUNTER 2017-02-24 17:54 | Emergency (ER) | payer MEDICAID ==
[2017-02-24 17:55] VITALS: BP 143/77; PULSE 68; RESP 16; TEMP 98.3; O2SAT 99
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
--- NOTE | 2017-02-24 19:46 | PD ---
Physical Exam Narrative General: The patient is a well-developed well-nourished female in no acute distress. Cardiovascular: Regular rate and rhythm without murmurs, gallops, or rubs. No pulse deficit to the extremities. Lungs: Clear to auscultation bilaterally. No wheezes, rhonchi, or rales. Abdomen: Soft, with reported minimal discomfort on palpation along the suprapubic area and bilateral lower quadrants of the abdomen that she describes as menstrual cramping type pain. No guarding, rebound, or rigidity. Normal bowel sounds are audible. No tenderness on palpation of McBurney's point. Extremities: No clubbing, cyanosis, or edema. Skin Exam: No rash noted. Intact skin that is warm and dry. Data Data Last Documented VS Vital Signs Date Time Temp Pulse Resp B/P Pulse Ox O2 Delivery O2 Flow Rate FiO2 02/24/17 19:54 48 20 147/93 100 02/24/17 17:55 98.3 Orders Beta Hcg (Quant/Titer) (02/24/17 18:40) Ibuprofen (Motrin) (02/24/17 20:00) Labs Laboratory Tests Test 02/24/17 18:48 Human Chorionic Gonadotropin, 1388 MIU/ML Quant MDM Medical Record Reviewed: Yes Supervised Visit with KAT: Yes Narrative Course I, Dr. Koenig, have reviewed the advance practice practitioner's documentation and am in agreement, met with the patient face to face, made the diagnosis, and the medical decision making was done by me. The patient was initially seen by Katherin. Please see her complete history and physical. *My assessment and Findings: The patient is a 31-year-old female who presents to [facility] emergency Department follow-up of being diagnosed with an ectopic on February 19 status post treatment with methotrexate. The patient was instructed to follow-up on February 22 for repeat quantitative beta hCG, however she reports that she waited out in the triage area for 5 hours and then decided to go home. She reports that she did pass a large blood clot Saturday night/early Saturday in the morning. She reports that since and her bleeding has decreased and her pain is more of a menstrual type of cramping. The patient reports having some discomfort at this time and is requesting pain medication. She reports that she is out of the Lortab that was previously prescribed. A repeat quantitative beta hCG was ordered. The patient's last quantitative beta-hCG was noted in the record to be 2589. Her quantitative beta hCG is 1388 today. The patient is again instructed regarding the importance of following up in the emergency department for another quantitative beta hCG in 3 days, therefore on 02/27. The patient is resting comfortably and feels better, is alert and in no distress. The patients results and examination findings were discussed with the patient. The repeat examination is unremarkable and benign. The history, exam, diagnostic testing, and current condition do not suggest any significant pathology to warrant further testing, continued ED treatment, admission, or surgical evaluation at this point. The vital signs have been stable. The patient does not have uncontrollable pain, intractable vomiting, or other significant symptoms. The patient's condition is stable and appropriate for discharge. The patient will pursue further outpatient evaluation with a primary care physician or other designated or consulting physician as indicated in the discharge instructions. The patient expressed understanding and was agreeable with this plan. Diagnosis Primary Impression: Ectopic Qualified Code: O00.90 - Ectopic without intrauterine , unspecified location Condition: Stable Lotus Koenig MD Feb 24, 2017 19:46
[2017-02-24 19:50] LABS: BETA HCG QUANT 1388 MIU/ML (0-5)
[2017-02-24 19:54] VITALS: BP 147/93; PULSE 48; RESP 20; O2SAT 100
[2017-02-24] MEDS ORDERED: IBUPROFEN 600 MG TAB PO ONE (20:00)
[2017-02-24] MEDS ORDERED: IBUP800T23 PO (20:30)
[2017-02-24 20:48] VITALS: BP 144/91
== END 2017-02-24 20:58 | disposition home or self-care (01) ==
LOC: NEPC 17:54
DX: O00.90 Unspecified ectopic pregnancy without intrauterine pregnancy (principal); Z3A.00 Weeks of gestation of pregnancy not specified
CPT/HCPCS: 84702; 99283

== ENCOUNTER 2017-06-29 19:18 | Emergency (ER) | payer MEDICAID ==
[~2017-06-29] VITALS: Ht 160 cm; Wt 65.0 kg
[~2017-06-29 19:18] MED LIST changes: +IBUP1TAB7 PO
[2017-06-29 19:20] VITALS: BP 168/104; PULSE 91; RESP 16; TEMP 98.5; O2SAT 99
[2017-06-29] MEDS ORDERED: AZIT250T3 PO (20:15)
[2017-06-29] MEDS ORDERED: ALBUAER3 INH (20:16)
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
== END 2017-06-29 20:32 | disposition home or self-care (01) ==
LOC: NEPD 19:18
DX: J40 Bronchitis, not specified as acute or chronic (principal); K08.89 Other specified disorders of teeth and supporting structures; E78.00 Pure hypercholesterolemia, unspecified; F17.200 Nicotine dependence, unspecified, uncomplicated
CPT/HCPCS: 99284

== ENCOUNTER 2017-10-12 16:35 | Emergency (ER) | payer MEDICAID ==
[~2017-10-12] VITALS: Ht 157.5 cm; Wt 68.0 kg
[~2017-10-12 16:35] MED LIST changes: +ALBUAER3 INH; +AZIT250T3 PO
[2017-10-12 16:38] VITALS: BP 152/72; PULSE 60; RESP 13; TEMP 98.1; O2SAT 100
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
[2017-10-12] MEDS ORDERED: OSEL75 PO (18:20)
[2017-10-12] MEDS ORDERED: MACR100C2 PO (18:20)
[2017-10-12 19:19] LABS: AMORPHOUS SEDIMENT, URINE MOD; BACTERIA, URINE OCC /hpf; BILIRUBIN, URINE NEG (NEG); BLOOD, URINE NEG (NEG); GLUCOSE,URINE NEG (NEG); KETONE, URINE NEG (NEG); MUCUS URINE MANY /lpf (OCC); NITRITE,URINE NEG (NEG); PH, URINE 7.5 (5.0-8.5); SQUAMOUS EPITHELIAL CELL URINE 15 /hpf (0-5); TRIPLE PHOSPHATE CRYSTAL,URINE MOD /hpf; URINE COLOR YELLOW (YELLW/STRAW); URINE LEUKOCYTE ESTERASE MOD (NEG)
== END 2017-10-12 19:39 | disposition home or self-care (01) ==
LOC: NEPD 16:35
DX: O23.41 Unspecified infection of urinary tract in pregnancy, first trimester (principal); B96.89 Other specified bacterial agents as the cause of diseases classified elsewhere; Z3A.00 Weeks of gestation of pregnancy not specified
CPT/HCPCS: 81001; 84703; 87086; 99283

== ENCOUNTER 2018-02-03 01:15 | Inpatient (IN) | payer MEDICAID ==
[2018-02-03] VITALS (32 sets, daily range): BP systolic 112–160; BP diastolic 65–109; PULSE 66–77; RESP 16–26; TEMP 97.6–98; O2SAT 90–99
[~2018-02-03] VITALS: Ht 157.5 cm; Wt 68.5 kg
[~2018-02-03 01:15] MED LIST changes: +MACR100C2 PO; +OSEL75 PO
[2018-02-03] MEDS ORDERED: LABETALOL HCL 100 MG/20 ML VIAL ONE (02:18)
[2018-02-03] MEDS: SODIUM CHLOR 0.9% 1000 ML INJ 1,000 ML IV SCH ×2 (02:54→14:35)
--- NOTE | 2018-02-03 02:55 | PD ---
HPI Chief Complaint Shortness of breath Date Seen: Feb 03, 2018 Time Seen: 02:34 Travel History International Travel<30 Days: No Contact w/Intl Traveler<30Days: No Known Affected Area: No History of Present Illness HPI 32-year-old 6 para 5 who is now 3 days from vaginal delivery at [facility]. She comes with a complaint of increasing shortness of breath and chest pain over the last 24 hour. The patient reports that she had elevated blood pressures during her hospitalization and she was discharged home with metoprolol and enalapril prescriptions but she has only been taking the metoprolol. Patient reports that she had an echocardiogram while hospitalized which showed that she had a "weak heart". The records of this admission are not available for review at this time. The patient denies any drug use but reportedly tested positive for cocaine at the time of her delivery. Her initial blood pressures were 176/107 and 156/111. Her O2 saturation was 92 % on room air. She was given 20 mg of IV labetalol for hypertensive crisis. I spoke with Dr. Cowan to assist with obtaining an ICU bed for this patient and to consult in her critical care evaluation and treatment. Para: 5 : 6 History Past Medical History Narrative Medical Patient reports prior substance abuse but denies recent use despite her story that she tested positive for cocaine on her admission this week. She denies history of asthma but has a current prescription for Provair. The patient reports having had an echocardiogram during her admission this week which identified possible cardiac problem. Those records are not available for review. Past Surgical History Surgical History: No Previous Surgery Social History Alcohol Use: Yes Tobacco Use: Yes Substance Abuse: Yes Allergies-Medications (Allergen,Severity, Reaction): Coded Allergies: No Known Allergies (Verified , 02/19/17) Home Meds Active Scripts Nitrofurantoin Monohydrate Macrocrystals (Macrobid) 100 Mg Capsule, 100 MG PO BID for Infection for 7 Days, #14 CAP 0 Refills Prov:Hipolito Mcdonnell MD 10/12/17 Oseltamivir (Tamiflu) 75 Mg Cap, 75 MG PO DAILY for Mgmt Viral Infection for 5 Days, #5 CAP 0 Refills Prov:Hipolito Mcdonnell MD 10/12/17 Albuterol 8.5 GM Inh (Proair Hfa 8.5 GM Inh) 90 Mcg/Act Aer, 2 PUFF INH Q4-6H Y for SHORTNESS OF BREATH, #1 INHALER 0 Refills 108 mcg/actuation Prov:Markell Nowak MD 06/29/17 Azithromycin (Azithromycin) 250 Mg Tab, 250 MG PO DIRECTED for Infection, #6 TAB 0 Refills Take 2 tabs (500 mg) on day 1 then 1 tab daily x 4 days. Prov:Markell Nowak MD 06/29/17 Ibuprofen (Ibuprofen) 800 Mg Tab, 800 MG PO TID for Pain, #21 TAB Prov:Lotus Koenig MD 02/24/17 Hydrocodone-Acetaminophen (Lortab) 5-325 Mg Tab, 1 TAB PO Q6H Y for PAIN, #12 TAB 0 Refills Prov:Lotus Koenig MD 02/19/17 Review of Systems HENT: No: Lightheadedness Cardiovascular: Chest Pain or Discomfort, No: Edema, Cyanosis Respiratory: Cough, Short of Breath Physical Exam Narrative GENERAL: Thin female in obvious respiratory distress SKIN: Warm and dry. HEAD: Normocephalic and atraumatic. EYES: No scleral icterus. No injection or drainage. ENT: No nasal drainage noted. Mucous membranes pink. Airway patent. NECK: Supple, trachea midline. No JVD. CARDIOVASCULAR: Regular rate and rhythm with systolic murmurs, no gallops, or rubs. RESPIRATORY: Breath sounds equal bilaterally. Bilateral rales. ABDOMEN/GI: Abdomen soft, non-tender, bowel sounds present, no rebound, no guarding Gravid to [-] weeks size Fundal Height: [-] GENITOURINARY: External Genitalia: intact and normal in appearance BUS glands: [-] Cervix: [-] EXTREMITIES: No cyanosis or edema. BACK: Nontender without obvious deformity. No CVA tenderness. NEUROLOGICAL: Awake and alert. Motor and sensory grossly within normal limits. Five out of 5 muscle strength in all muscle groups. Normal speech. Data Data Vital Signs Reviewed: Yes (O2 saturation 92% on room air, pulse 88 blood pressure 176/107, repeat blood pressure 156/111) Orders Orders Labetalol Inj (Trandate Inj) (02/03/18 02:18) Ob (2e) Additional Admit Info (02/03/18 02:22) MDM Narrative Course / MDM Assessment: patient with hypertensive crisis and possible cardiomyopathy versus pulmonary embolus Plan: Admit to intensive care. The patient was discussed with Dr. Schmitt Addendum: Initial chest x-ray findings are consistent with pulmonary edema per Dr. Cowan. Blood pressures are significantly improved on nicardipine drip. Plan: Based on the hypertensive crisis and mild elevation of transaminases I would recommend magnesium sulfate for seizure prophylaxis with an additional working diagnosis of preeclampsia. Tad Major MD Feb 03, 2018 02:55
[2018-02-03] MEDS ORDERED: niCARdipine INJ 25 MG in SODIUM CHLOR 0.9% 250 ML INJ 250 ML IV PRN (03:00)
[2018-02-03] MEDS ORDERED: TEMAZEPAM 15 MG CAP PO PRN (03:00)
[2018-02-03] MEDS ORDERED: SODIUM CHLORIDE 0.9% FLUSH 10 ML FLUSH IV FLUSH PRN (03:00)
[2018-02-03] MEDS ORDERED: LORazepam 2 MG/ML VIAL IV PUSH PRN (03:00)
[2018-02-03] MEDS: ENOXAPARIN SODIUM 40 MG/0.4 ML SYRINGE SQ SCH (03:00)
[2018-02-03] MEDS ORDERED: MAGNESIUM HYDROXIDE SUSP 30 ML CUP PO PRN (03:00)
[2018-02-03] MEDS ORDERED: CHLORHEXIDINE GLUCONATE 2 % 1 PACK (2 CLOTHS) TOP PRN (03:00)
[2018-02-03] MEDS ORDERED: BISACODYL 10 MG SUPP RECTAL PRN (03:00)
[2018-02-03] MEDS ORDERED: NURSING INFORMATION XX SCH (03:00)
[2018-02-03] MEDS ORDERED: SENNOSIDES 8.6 MG TAB PO PRN (03:00)
[2018-02-03] MEDS ORDERED: LACTULOSE SYRUP 20 GM/30 ML CUP PO PRN (03:00)
[2018-02-03] MEDS ORDERED: ACETAMINOPHEN 325 MG TAB PO PRN (03:00)
[2018-02-03] MEDS ORDERED: RESP: ALBUTEROL 2.5 MG/IPRATROPIUM 0.5 MG NEB (PRN) INH (03:00)
--- NOTE | 2018-02-03 03:00 | HHI.HP ---
HPI Service Critical Care Medicine Primary Care Physician Unknown Admission Diagnosis Diagnosis: Travel History International Travel<30 Days: No Contact w/Intl Traveler <30 Da: No Traveled to Known Affected Are: No History of Present Illness 32-year-old very pleasant female 6 para 5 who is now 3 days from vaginal delivery at [facility] [place]. She presents today with a complaint of increasing shortness of breath and chest pain over the last 24 hour. The delivery went well but she has been complaining of a constant right -sided chest discomfort that intermittently becomes more severe. This increases with deep breathing and is and is relieved by certain positional changes. She does not have a prior cardiac history, however she has abnormal EKG showing anterolateral T-wave inversion which is new since EKG in 2015. The echocardiogram was performed at the [facility] per patient shows that she has a " weak" heart. She denies any recent syncope or presyncope, or palpitation. She has a been physically active prior to the of her child without symptoms. The toxicology screen performed at the [facility] was positive for cocaine and opiates although she denies any cocaine use within the last 2 years. She smokes half pack of cigarettes per day and has been hypertensive since delivery. She was discharged from [facility] with prescription for metoprolol and lisinopril, however she has been using only the metoprolol since lisinopril makes her dizzy. She presents today complaining of generalized pain everywhere but is also having significant shortness of breath. Review of Systems Constitutional: COMPLAINS OF: Diaphoretic episodes, Fatigue, DENIES: Fever, Weight gain, Weight loss, Chills, Dizziness, Change in appetite, Night Sweats Endocrine: DENIES: Abnorml menstrual pattern, Heat/cold intolerance, Polydipsia , Polyuria, Polyphagia Eyes: DENIES: Blurred vision, Diplopia, Eye inflammation, Eye pain, Vision loss , Photosensitivity, Double Vision Ears, nose, mouth, throat: DENIES: Tinnitus, Hearing loss, Vertigo, Nasal discharge, Oral lesions, Throat pain, Hoarseness, Ear Pain, Running Nose, Epistaxis, Sinus Pain, Toothache, Odynophagia Respiratory: COMPLAINS OF: Shortness of breath, DENIES: Apneas, Cough, Snoring , Wheezing, Hemoptysis, Sputum production Cardiovascular: COMPLAINS OF: Chest pain, DENIES: Palpitations, Syncope, Dyspnea on Exertion, PND, Lower Extremity Edema, Orthopnea, Claudication Gastrointestinal: DENIES: Abdominal pain, Black stools, Bloody stools, Constipation, Diarrhea, Nausea, Vomiting, Difficulty Swallowing, Anorexia Genitourinary: DENIES: Abnormal vaginal bleeding, Dysmenorrhea, Dyspareunia, Sexual dysfunction, Urinary frequency, Urinary incontinence, Urgency, Hematuria , Dysuria, Nocturia, Vaginal discharge Musculoskeletal: DENIES: Joint pain, Muscle aches, Stiffness, Joint Swelling, Back pain, Neck pain Integumentary: DENIES: Abnormal pigmentation, Pruritus, Rash, Nail changes, Breast masses, Breast skin changes, Nipple discharge Hematologic/lymphatic: DENIES: Bruising, Lymphadenopathy Immunologic/allergic: DENIES: Eczema, Urticaria Neurologic: DENIES: Abnormal gait, Headache, Localized weakness, Paresthesias, Seizures, Speech Problems, Tremor, Poor Balance Psychiatric: DENIES: Anxiety, Confusion, Mood changes, Depression, Hallucinations, Agitation, Suicidal Ideation, Homicidal Ideation, Delusions Past Family Social History Allergies: Coded Allergies: No Known Allergies (Verified , 02/19/17) Past Medical History Migraine headache Tobacco use Cardiac murmur Past Surgical History G6 P 5 Reported Medications Reported Meds & Active Scripts Active Macrobid (Nitrofurantoin Monohydrate Macrocrystals) 100 Mg Capsule 100 Mg PO BID 7 Days Tamiflu (Oseltamivir Phosphate) 75 Mg Cap 75 Mg PO DAILY 5 Days Proair Hfa 8.5 GM Inh (Albuterol Sulfate) 90 Mcg/Act Aer 2 Puff INH Q4-6H PRN 108 mcg/actuation Azithromycin 250 Mg Tab 250 Mg PO DIRECTED Take 2 tabs (500 mg) on day 1 then 1 tab daily x 4 days. Ibuprofen 800 Mg Tab 800 Mg PO TID Lortab (Hydrocodone-Acetaminophen) 5-325 Mg Tab 1 Tab PO Q6H PRN Active Ordered Medications Current Medications Medications (Trade) Dose Ordered Sig/Justin Route PRN Reason Start Time Stop Time Status Last Admin Dose Admin Sodium Chloride 1,000 ml @ 84 mls/hr [id number] IV 02/03/18 02:54 UNV Sodium Chloride (NS Flush) 2 ml UNSCH PRN IV FLUSH FLUSH AFTER USING IV ACCESS 02/03/18 03:00 UNV Sodium Chloride (NS Flush) 2 ml BID IV FLUSH 02/03/18 09:00 UNV Acetaminophen (Tylenol) 650 mg Q6H PRN PO PAIN 1-5 AND/OR FEVER >101F 02/03/18 03:00 UNV Morphine Sulfate (Morphine Inj) 2 mg Q2H PRN IV PUSH PAIN SCALE 6 TO 10 02/03/18 03:00 UNV Famotidine (Pepcid Inj) 20 mg Q12HR IV PUSH 02/03/18 09:00 UNV Lorazepam (Ativan Inj) 1 mg Q1H PRN IV PUSH Agitation/Sedation 02/03/18 03:00 UNV Ondansetron HCl (Zofran Inj) 4 mg Q6H PRN IV PUSH NAUSEA OR VOMITING 02/03/18 03:00 UNV Temazepam (Restoril) 15 mg HS PRN PO INSOMNIA 02/03/18 03:00 UNV Albuterol/ Ipratropium (Duoneb Neb) 1 ampule Q6HR NEB INH 02/03/18 04:00 UNV Albuterol/ Ipratropium (Duoneb Neb) 1 ampule Q2HR NEB PRN INH WHEEZING 02/03/18 03:00 UNV Enoxaparin Sodium (Lovenox Inj) 40 mg Q24H SQ 02/03/18 03:00 UNV Miscellaneous Information ([facility] Nursing Information) 1 [id number] XX 02/03/18 03:00 UNV Chlorhexidine Gluconate (Chlorhexidine 2% Cloth) 3 pack Taper DAILY@04 TOP 02/03/18 04:00 01/30/19 03:59 UNV Chlorhexidine Gluconate (Chlorhexidine 2% Cloth) 3 pack UNSCH PRN [facility] 02/03/18 03:00 UNV Senna/Docusate Sodium (Jaqueline-Colace) 1 tab BID PO 02/03/18 09:00 UNV Magnesium Hydroxide (Milk Of Magnesia Liq) 30 ml Q12H PRN PO Mild constipation 02/03/18 03:00 UNV Sennosides (Senokot) 17.2 mg Q12H PRN PO Moderate constipation 02/03/18 03:00 UNV Bisacodyl (Dulcolax Supp) 10 mg DAILY PRN RECTAL SEVERE CONSITIPATION 02/03/18 03:00 UNV Lactulose (Lactulose Liq) 30 ml DAILY PRN PO SEVERE CONSITIPATION 02/03/18 03:00 UNV Nicardipine HCl 25 mg/Sodium Chloride 260 ml @ 52 mls/hr TITRATE PRN IV Blood pressure management 02/03/18 03:00 UNV Family History Positive late onset in her maternal grandmother with a history of triple coronary artery bypass graft in her late 70s, maternal and with myocardial infarction in her 40s. She had a brother at the age of 26 from a likely congenital abnormally, unsure if his was an arrhythmia or myocardial infarction related. Social History Positive for tobacco use, denies alcohol or illicit drugs abuse. However the report from [facility] from January 30, 2018 reports that her drug screen was positive for opiates and cocaine. Physical Exam Physical Exam GENERAL: Well-nourished, well-developed patient. In moderate respiratory distress SKIN: Warm and dry. HEAD: Normocephalic. EYES: No scleral icterus. No injection or drainage. NECK: Supple, trachea midline. No JVD or lymphadenopathy. CARDIOVASCULAR: Regular rate and rhythm without murmurs, gallops, or rubs. RESPIRATORY: Breath sounds equal bilaterally. No accessory muscle use. GASTROINTESTINAL: Abdomen soft, non-tender, nondistended. MUSCULOSKELETAL: No cyanosis, or edema. BACK: Nontender without obvious deformity. NEURO EXAM: GCS: 15 Mental Status: The patient is alert and oriented to person, place, and time with normal speech. Cranial Nerves: Visual acuity intact bilaterally. Visual harmon normal in all quadrants. Pupils are round, reactive to light. Extraocular movements are intact without ptosis. Hearing is normal bilaterally. Voice is normal. Tongue protrudes midline and moves symmetrically. Reflexes: Biceps, patellar, and Achilles are 2/4 bilaterally. No clonus. Caprini VTE Risk Assessment Caprini VTE Risk Assessment: Mod/High Risk (score >= 2) Caprini Risk Assessment Model Point Value = 1 Point Value = 2 Point Value = 3 Point Value = 5 Age 41-60 Minor surgery BMI > 25 kg/m2 Swollen legs Varicose veins or History of unexplained or recurrent spontaneous Oral contraceptives or hormone replacement Sepsis (< 1 month) Serious lung disease, including pneumonia (< 1 month) Abnormal pulmonary function Acute myocardial infarction Congestive heart failure (< 1 month) History of inflammatory bowel disease Medical patient at bed rest Age 61-74 Arthroscopic surgery Major open surgery (> 45 min) Laparoscopic surgery (> 45 min) Malignancy Confined to bed (> 72 hours) Immobilizing plaster cast Central venous access Age >= 75 History of VTE Family history of VTE Factor V Leiden Prothrombin [id number] Lupus anticoagulant Anticardiolipin antibodies Elevated serum homocysteine Heparin-induced thrombocytopenia Other congenital or acquired thrombophilia Stroke (< 1 month) Elective arthroplasty Hip, pelvis, or leg fracture Acute spinal cord injury (< 1 month) Prophylaxis Regimen Total Risk Factor Score Risk Level Prophylaxis Regimen 0-1 Low Early ambulation 2 Moderate Order ONE of the following: *Sequential Compression Device (SCD) *Heparin 5000 units SQ BID 3-4 Higher Order ONE of the following medications: *Heparin 5000 units SQ TID *Enoxaparin/Lovenox 40 mg SQ daily (WT < 150 kg, CrCl > 30 mL/min) *Enoxaparin/Lovenox 30 mg SQ daily (WT < 150 kg, CrCl > 10-29 mL/min) *Enoxaparin/Lovenox 30 mg SQ BID (WT < 150 kg, CrCl > 30 mL/min) AND/OR *Sequential Compression Device (SCD) 5 or more Highest Order ONE of the following medications: *Heparin 5000 units SQ TID (Preferred with Epidurals) *Enoxaparin/Lovenox 40 mg SQ daily (WT < 150 kg, CrCl > 30 mL/min) *Enoxaparin/Lovenox 30 mg SQ daily (WT < 150 kg, CrCl > 10-29 mL/min) *Enoxaparin/Lovenox 30 mg SQ BID (WT < 150 kg, CrCl > 30 mL/min) AND *Sequential Compression Device (SCD) Assessment and Plan Assessment and Plan Respiratory failure -Pulmonary edema on chest x-ray -Gentle diuresis -Blood pressure control -2D echo pending -Pleuritic chest pain -CTA to rule out pulmonary embolism Hypertension -Nicardipine drip to keep SBP less than 150 and diastolic less than 90 Elevated LFTs -Suspecting preeclampsia -Magnesium IV per LINE SERVICER DVT GI prophylaxis -Noé's and SCDs -Lovenox -Pepcid Critical Care: The total critical care time was 35 minutes. Time to perform other separately billable procedures was not included in the critical care time. Vinicius Cowan MD Feb 03, 2018 3:00 am
[2018-02-03 03:03] LABS: AUTOMATED NEUTROPHIL # 8.8 TH/MM3 (1.8-7.7); BASOPHIL # 0.1 TH/MM3 (0-0.2); BASOPHIL % 0.7 % (0.0-2.0); EOSINOPHIL # 0.2 TH/MM3 (0-0.4); EOSINOPHIL % 1.4 % (0.0-4.0); HEMATOCRIT 33.2 % (35.0-46.0); HEMOGLOBIN 10.9 GM/DL (11.6-15.3); LYMPH % 27.1 % (9.0-44.0); LYMPHOCYTE # 3.6 TH/MM3 (1.0-4.8); MEAN CELL VOLUME 88.2 FL (80.0-100.0); MEAN CORPUSCULAR HGB CONC 32.8 % (32.0-36.0); MONO % 4.1 % (0.0-8.0); MONOCYTE # 0.5 TH/MM3 (0-0.9); NEUT % 66.7 % (16.0-70.0); PLATELET COUNT 410 TH/MM3 (150-450); RED BLOOD COUNT 3.76 MIL/MM3 (4.00-5.30); RED CELL DISTRIBUTION WIDTH 14.1 % (11.6-17.2); WHITE BLOOD COUNT 13.2 TH/MM3 (4.0-11.0)
[2018-02-03] MEDS: CHLORHEXIDINE GLUCONATE 2 % 1 PACK (2 CLOTHS) TOP SCH (03:03)
[2018-02-03] MEDS: SODIUM CHLORIDE 0.9% FLUSH 10 ML FLUSH IV FLUSH SCH ×2 (03:03→20:59)
[2018-02-03 03:12] LABS: ALBUMIN 2.6 GM/DL (3.4-5.0); ALT (GPT) 67 U/L (10-53); AST (GOT) 69 U/L (15-37); BICARBONATE 24.1 MEQ/L (21.0-32.0); BLOOD UREA NITROGEN 13 MG/DL (7-18); CALCIUM 7.9 MG/DL (8.5-10.1); CHLORIDE 107 MEQ/L (98-107); CREATININE 0.68 MG/DL (0.50-1.00); GLOMERULAR FILTRATION RATE 122 ML/MIN (>89); GLUCOSE,RANDOM 83 MG/DL (74-106); SODIUM (NA) 141 MEQ/L (136-145)
[2018-02-03] MEDS ORDERED: ONDANSETRON ODT 4 MG TAB PO PRN (03:15)
[2018-02-03 03:17] LABS: ALKALINE PHOSPHATASE 141 U/L (45-117); TOTAL BILIRUBIN ADULT 0.2 MG/DL (0.2-1.0); TOTAL PROTEIN 6.3 GM/DL (6.4-8.2); TROPONIN I 0.08 NG/ML (0.02-0.05)
[2018-02-03] MEDS ORDERED: FUROSEMIDE 40 MG/4 ML VIAL ONE (03:26)
[2018-02-03] MEDS ORDERED: FUROSEMIDE 40 MG/4 ML VIAL IV PUSH ONE (03:30)
[2018-02-03] MEDS ORDERED: MAGNESIUM SULFATE 4 GM PREMIX 100 ML IV ONE (04:45)
[2018-02-03] MEDS ORDERED: CALCIUM GLUCONATE 10% 1 GM/10 ML VIAL IV PUSH PRN (04:45)
--- NOTE | 2018-02-03 04:53 | RADRPT ---
EXAM DATE: 02/03/2018 4:49 AM EDT AGE/SEX: 32 years / Female INDICATIONS: Chest pain. CLINICAL DATA: This is the patient's initial encounter. Patient reports that signs and symptoms have been present for 1 day and indicates a pain score of 10/10. MEDICAL/SURGICAL HISTORY: Deep venous thrombosis. Hypercholesterolemia. PE None. COMPARISON: No prior [facility] exams available for comparison. FINDINGS: There is diffuse bilateral interstitial infiltrates throughout both lung harmon. Heart size is within normal limits. There are no pleural effusions. Bony structures are grossly intact. There is no evide nce of pneumothorax. CONCLUSION: Diffuse bilateral interstitial pulmonary infiltrates suggestive of either pulmonary edema versus pneu monia. Electronically signed by: Paul Rocha MD 02/03/2018 4:52 AM EDT
[2018-02-03] MEDS: RESP: ALBUTEROL 2.5 MG/IPRATROPIUM 0.5 MG NEB (SCH) INH ×4 (04:55→21:03)
[2018-02-03] MEDS: MAGNESIUM SULFATE 40 GM PREMIX 1,000 ML IV SCH (05:07)
[2018-02-03] MEDS ORDERED: IOHEXOL 350 MG/ML 10 ML VIAL (for RAD DIAG) IVCONTRAST ONE (05:36)
--- NOTE | 2018-02-03 05:41 | RADRPT ---
EXAM DATE: 02/03/2018 5:32 AM EDT AGE/SEX: 32 years / Female INDICATIONS: Chest pain with shortness breath. Post . CLINICAL DATA: This is the patient's initial encounter. Patient reports that signs and symptoms have been present for 3 days and indicates a pain score of 7/10. MEDICAL/SURGICAL HISTORY: Hypertension. . RADIATION DOSE: 6.51 CTDI (mGy) COMPARISON: No prior [facility] exams available for comparison. TECHNIQUE: Volumetric scanning was performed using a multi-row detector CT scanner during bolus infu nayely of 75 ml Omnipaque 350 (iohexol) nonionic water-soluble contrast as a single exam dose. The fabrice a was post processed with a variety of visualization algorithms including full volume maximum intensi ty projection and sliding thin slab reformation. Using automated exposure control and adjustment of the mA and/or kV according to patient size, radiation dose was kept as low as reasonably achievable t o obtain optimal diagnostic quality images. FINDINGS: Pulmonary Arteries: No filling defects are seen in the pulmonary arteries out to the subsegmental ve ssels. The left and right pulmonary arteries are normal in diameter. Lung: There is diffuse bilateral interstitial infiltrates throughout both lung harmon. There are sma ll bilateral pleural effusions. Effusion: Small bilateral pleural effusions. Mediastinum: No evidence of mediastinal or hilar adenopathy. Other: The axilla is unremarkable. CONCLUSION: 1. No evidence of pulmonary embolism 2. Bilateral interstitial pulmonary infiltrates with small bilateral effusions. This can be seen wit h pulmonary edema versus pneumonia. Electronically signed by: Paul Rocha MD 02/03/2018 5:39 AM EDT
[2018-02-03] MEDS ORDERED: FAMOTIDINE 20 MG/2 ML VIAL IV PUSH SCH (09:00)
[2018-02-03] MEDS: DOCUSATE SODIUM 50 MG/SENNA 8.6 MG TAB PO SCH ×2 (09:14→20:59)
--- NOTE | 2018-02-03 09:32 | HHI.PR ---
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 Of note she was hypertensive during her and was prescribed metoprolol and lisinopril and discharge however patient had only been taking the metoprolol as the lisinopril made her "dizzy." Chest x-ray on admission showed pulmonary edema and she was hypertensive to the 160s over 100s. Patient was admitted to ICU for preeclampsia /hypertensive crisis. Patient was placed on nicardipine drip and was diuresed for her pulmonary edema as well as started on magnesium for preeclampsia. This morning, patient states she is feeling much better and denies any shortness of breath or chest pain at this time. She does continue to have a mild headache, but with no vision changes or spots in her vision. Denies abdominal pain, peripheral edema. Upon questioning she does endorse having elevated blood pressures during her , but she was then evaluated by a physician until she was 6 months so it is unsure whether she has chronic hypertension. She is currently off the nicardipine drip and is normotensive. Objective Vital Signs Date Time Temp Pulse Resp B/P (MAP) Pulse Ox O2 Delivery O2 Flow Rate FiO2 02/03/18 08:49 96 Nasal Cannula 4.00 02/03/18 07:00 72 21 125/84 (98) 92 02/03/18 06:31 77 119/70 02/03/18 06:08 75 117/70 02/03/18 06:00 97.6 77 22 138/85 (102) 97 02/03/18 05:42 75 138/85 02/03/18 05:00 97.6 77 22 138/85 (102) 97 02/03/18 04:57 94 Nasal Cannula 4.00 02/03/18 04:00 97.6 75 22 138/94 (109) 97 02/03/18 03:32 81 169/106 02/03/18 03:20 77 02/03/18 03:00 97.6 76 22 160/109 (126) 97 I/O 02/02/18 02/02/18 02/02/18 02/03/18 02/03/18 02/03/18 07:00 15:00 23:00 07:00 15:00 23:00 Intake Total 377 ml Output Total 2500 ml Balance -2123 ml Intake IV Total 377 ml Output Urine Total 2500 ml Result Diagram: 02/03/1822402/03/18224 Objective Remarks GENERAL: Well-nourished, well-developed patient sitting upright in bed in no respiratory distress speaking in full sentences with no difficulty. SKIN: Warm and dry. HEAD: Normocephalic. EYES: No scleral icterus. No injection or drainage. NECK: Supple, trachea midline. No JVD or lymphadenopathy. CARDIOVASCULAR: Regular rate and rhythm without murmurs, gallops, or rubs. RESPIRATORY: Breath sounds equal bilaterally. No accessory muscle use. Moving air well with minimal crackles appreciated in the lower lung harmon GASTROINTESTINAL: Abdomen soft, non-tender, nondistended. Normoactive bowel sounds. Fundus is soft and nontender MUSCULOSKELETAL: No cyanosis, or edema. BACK: Nontender without obvious deformity. No CVA tenderness. Assessment and Plan Problem List: (1) Severe pre-eclampsia, ICD Codes: O14.15 - Severe pre-eclampsia, complicating the puerperium Assessment and Plan 32 yo F with who is day 4 who presented to the emergency room with chest pain, shortness of breath. Chest x-ray significant for pulmonary edema patient also with elevated blood pressures up to 169/106. Suspecting severe preeclampsia. Admitted to critical care and started on nicardipine drip , IV magnesium, diurese with Lasix 40 mg IV once. Pressures improving and shortness of breath improving. Respiratory failure -Chest x-ray on admission showed pulmonary edema -CTA negative for pulmonary embolism, shows bilateral interstitial pulmonary infiltrates with small bilateral effusions -Initially required 4 L nasal cannula on admission, O2 saturations at 96% on room air during examination on the morning of 02/03 -Symptomatically improving on the morning of 02/03 after Lasix 40 mg IV 1 -2D echo pending Hypertension -Required nicardipine drip to keep SBP less than 150 and diastolic less than 90 on admission, currently off nicardipine drip with blood pressure 129/71 -Will need p.o. blood pressure control Preeclampsia -In setting of pulmonary edema, hypertension -suspecting severe preeclampsia -IV magnesium on admission, will treat for 24 hours (stop time of 0500 on 02/04) -Elevated LFTs noted on admission, will trend -We will transferred to service once cleared from critical care DVT GI prophylaxis -Noé's and SCDs -Lovenox -Pepcid Discussed Condition With Dr. Asencio, Dr. Kimberly Moran,Clayton Coker MD R1 Feb 03, 2018 09:32
--- NOTE | 2018-02-03 09:42 | EKG ---
Date Performed: 02/03/2018 Time Performed: 07:55:56 PTAGE: 32 years EKG: Sinus rhythm . Prolonged QT interval Left ventricular hypertrophy Ant/septal and lateral T wave changes are probab ly due to ventricular hypertrophy Compared to previous tracing T wave inversion is present in the ant erior leads, consider anterior ischemia Abnormal ECG PREVIOUS TRACING : 02/15/14 DOCTOR: Jorge Mireles Interpretating Date/Time 02/03/2018 09:41:18
[2018-02-03 09:51] LABS: BACTERIA, URINE RARE /hpf; BILIRUBIN, URINE NEG (NEG); BLOOD, URINE NEG (NEG); GLUCOSE,URINE NEG (NEG); KETONE, URINE NEG (NEG); NITRITE,URINE NEG (NEG); PH, URINE 6.5 (5.0-8.5); SQUAMOUS EPITHELIAL CELL URINE 1 /hpf (0-5); TRANSITIONAL EPI CELLS, URINE 1 /hpf; URINE COLOR YELLOW (YELLW/STRAW); URINE LEUKOCYTE ESTERASE NEG (NEG)
[2018-02-03] MEDS ORDERED: METOPROLOL TARTRATE 25 MG TAB PO SCH ×2 (10:00→21:00)
[2018-02-03] MEDS ORDERED: LOSARTAN 25 MG TAB PO SCH (10:15)
--- NOTE | 2018-02-03 10:19 | HHI.CCPN ---
Subjective Remarks/Hospital Course 32-year-old very pleasant female 6 para 5 who is now 3 days from vaginal delivery at [facility]. She presents today with a complaint of increasing shortness of breath and chest pain over the last 24 hour. The delivery went well but she has been complaining of a constant right -sided chest discomfort that intermittently becomes more severe. This increases with deep breathing and is and is relieved by certain positional changes. She does not have a prior cardiac history, however she has abnormal EKG showing anterolateral T-wave inversion which is new since EKG in 2015. The echocardiogram was performed at the [facility] per patient shows that she has a " weak" heart. She denies any recent syncope or presyncope, or palpitation. She has a been physically active prior to the of her child without symptoms. The toxicology screen performed at the [facility] was positive for cocaine and opiates although she denies any cocaine use within the last 2 years. She smokes half pack of cigarettes per day and has been hypertensive since delivery. She was discharged from [facility] with prescription for metoprolol and lisinopril, however she has been using only the metoprolol . She presents today complaining of generalized pain everywhere but is also having significant shortness of breath. Subjective: Discussed with patient and reviewed records from [facility]. She had at 33 weeks on 01/29/18 after placental abruption. EBL was 500. She had only had one visit prior to delivery and she says that she was hypertensive at that time and was told that this required further workup however she did not follow up due to transportation issues. After delivery she developed chest pain she is now describing as "heaviness" substernal. Troponin T was <0.01 on 01/30. EKG reportedly showed anteriorlateral T wave inversion. Echo showed dilated cardiomyopathy with EF of 30-35%. She is not breast-feeding. Her baby is in the NICU at [facility]. She was started on beta-phyllis and TIBURCIO inhibitor though she states she did not take the TIBUCRIO inhibitor because she was experiencing cough. She states that last night she began having chest pain again. She does not have any chest pain or SOB currently. CT pulmonary angiogram was negative for PE. Urine drug screen was positive for cocaine and opiates on 01/29. Patient came she has not used cocaine in a year. She believes that the only prior echos she has had were all at [address]. She had an echo with EF of 55-65%., Echo with EF of 65%, mild to moderate TR. She had a treadmill stress test 02/15/14 that was negative for ischemia. No prior cardiac catheterization. Troponin now 0.08 She was on Cardene but this is now off and she is hypertensive SBP 140s. Resuming metoprolol and we will substitute TIBURCIO inhibitor with ARB due to cough. She is on magnesium sulfate 2 gram/hr and obstetrics recommending continue for 24 hours. Complains of intermittent headache, no seizures, no visual change Objective Vital Signs Date Time Temp Pulse Resp B/P (MAP) Pulse Ox O2 Delivery O2 Flow Rate FiO2 02/03/18 09:30 71 145/85 (105) 96 02/03/18 09:01 24 02/03/18 08:49 Nasal Cannula 4.00 02/03/18 08:00 97.8 Intake and Output 02/03/18 02/03/18 02/04/18 08:00 16:00 00:00 Intake Total 377 ml Output Total 2500 ml Balance -2123 ml Result Diagram: 02/03/1822402/03/18 022 Objective Remarks GENERAL: Well-nourished, well-developed patient. Sitting up in bed, alert pleasant and talkative. SKIN: Warm and dry. HEAD: Normocephalic. EYES: No scleral icterus. No injection or drainage. NECK: Supple, trachea midline. No JVD or lymphadenopathy. CARDIOVASCULAR: Regular rate and rhythm 1/6 systolic murmur LSB. RESPIRATORY: Breathing comfortably on room air. Clear to auscultation bilaterally. . GASTROINTESTINAL: Abdomen soft, non-tender, nondistended. Bowel sounds present MUSCULOSKELETAL: No cyanosis, or edema. Negative Homans sign. No calf tenderness. NEURO EXAM: GCS: Alert and interactive pleasant. Strength 5 out of 5 in all extremities. Sensation intact. DTRs 2+ no clonus A/P Assessment and Plan 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 -Pulmonary edema on chest x-ray. Clinically improved following diuresis -2D echo pending -Pleuritic chest pain -CTA negative for pulmonary embolism -troponin elevated, trend. Consult cardiology. Hypertension -Off Nicardipine drip . Metoprolol 50 mg p.o. twice daily. Metoprolol 25 mg p.o. twice daily. Initiate losartan in place of TIBURCIO inhibitor since she was experiencing cough Elevated LFTs ? preeclampsia -Magnesium IV per TRANSITIONS RN CARE COORDINATOR Patient denies IV drug use. Check viral hepatitis panel. DVT GI prophylaxis -Noé's and SCDs -Lovenox -Pepcid no longer indicated, will discontinue No additional billing. Joelle Nunez MD Feb 03, 2018 10:19
--- NOTE | 2018-02-03 11:55 | MB ---
cc: Delta Barba MD DATE: 02/03/2018 REASON FOR CONSULTATION: Cardiomyopathy, elevated troponin. HISTORY OF PRESENT ILLNESS: The patient is a 32-year-old female with a history of recently diagnosed severe dilated cardiomyopathy, now 4 days status post vaginal delivery after placental abruption, history of hyperlipidemia, migraine headaches, who presented to the hospital with complaints of shortness of breath and chest pains. For the past 4 days, she has had fairly constant right parasternal chest discomfort, which increases with inspiration and cough. In the last 2 to 3 days, she has also had considerable dyspnea with very minimal activity. Last night, she was unable to lie down due to fairly severe orthopnea. At some point last night, the chest discomfort resolved. She denies dizziness, syncope, near syncope, palpitations, pedal edema, fevers. The patient had her vaginal delivery at [facility] and was prescribed metoprolol and enalapril on discharge, but she stopped taking enalapril due to cough. On presentation here to the emergency department, she was found to be hypertensive with blood pressure of approximately 170/110. PAST MEDICAL HISTORY: 1. Migraine headaches. 2. Hyperlipidemia. 3. 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 CURRENT CARDIAC MEDICATIONS: 1. Metoprolol 25 mg p.o. b.i.d. 2. Losartan 25 mg p.o. daily. 3. Lovenox 40 mg subcutaneously q. 24 hours. ALLERGIES: NO KNOWN DRUG ALLERGIES. FAMILY HISTORY: Noncontributory. SOCIAL HISTORY: The patient denies alcohol or drug abuse. She smokes less than 1/2 a pack of cigarettes per day. REVIEW OF SYSTEMS: As in history of present illness, otherwise negative or noncontributory. She also denies abdominal pain, melena, diarrhea, bright red blood per rectum. Occasionally, she experiences headaches. PHYSICAL EXAMINATION: VITAL SIGNS: Her blood pressure 138/94 with a pulse of 75, respirations 22. GENERAL: She is a well-developed, thin, female in no acute distress. NECK: Jugular venous pressure is normal. Carotid pulses are 2+ bilaterally and without bruits. CHEST: Reveals diminished breath sounds at the bases. CARDIAC: She has a regular rhythm and rate without S3, S4, or murmur. ABDOMEN: She has a soft, nontender abdomen. Bowel sounds are present. There is no definite hepatosplenomegaly. EXTREMITIES: Reveals no clubbing, cyanosis or edema. LABORATORY DATA: Includes WBC 13.2, hemoglobin 10.9, platelets 410. Potassium 4.2, BUN 13, creatinine 0.68. Troponin 0.08, AST 69, ALT 67. Chest x-ray shows diffuse bilateral interstitial pulmonary infiltrates. EKG from 02/03/2018 at 7:55 a.m. shows sinus rhythm, anterior T-wave abnormality, consider ischemia. IMPRESSION: Very atypical right-sided chest pains, acute congestive heart failure, severe dilated cardiomyopathy, possibly peripartum cardiomyopathy, in this 32-year-old female, now 4 days status post vaginal delivery. Since coming into the hospital, she has symptomatically improved with intravenous furosemide diuresis. Overall, I doubt the slight elevation in troponin is due to acute coronary syndrome due to obstructive coronary disease, although with a drug screen positive for cocaine recently, it is difficult to exclude myocardial ischemia. Her EKG does show new ischemic anterior T-wave abnormalities, although her recent chest pains are very atypical for myocardial ischemia. The patient's cardiomyopathy may be a peripartum cardiomyopathy, although it may also be in part due to uncontrolled blood pressures. From what I can gather, her compliance with followup during her was poor. RECOMMENDATIONS: 1. In light of her possible peripartum cardiomyopathy, strongly recommend tubal ligation in the future. 2. Continue metoprolol and agree with changing her TIBURCIO inhibitor to an angiotensin receptor phyllis, increasing doses as much as tolerated. 3. Daily baby aspirin. Delta Barba MD GHIbrahima/SY , 11:31 AM , 11:54 AM MISTY
[2018-02-03 13:45] LABS: INTERNATIONAL NORMALIZED RATIO 0.9 RATIO; PROTHROMBIN TIME - PATIENT 9.2 SEC (9.8-11.6)
[2018-02-03] MEDS: ASPIRIN EC 81 MG TABEC PO SCH (14:34)
[2018-02-03] MEDS: MORPHINE SULFATE 4 MG/ML INJ IV PUSH PRN ×2 (14:35→21:07)
--- NOTE | 2018-02-03 14:52 | RADRPT ---
EXAM DATE: 02/03/2018 2:43 PM EDT AGE/SEX: 32 years / Female INDICATIONS: Increased lab values. CLINICAL DATA: This is the patient's initial encounter. Patient reports that signs and symptoms have been present for 1 day and indicates a pain score of 4/10. MEDICAL/SURGICAL HISTORY: . Hypercholesterol. Ectopic . Post . None. COMPARISON: [facility] [place], CT PULMONARY ANGIOGRAM, 02/03/2018. . No external comparison. MEASUREMENTS (cm x cm x cm): Liver:__ 20.3 cm length Common Bile Duct:__ 4mm Right Kidney:__ 12.5 x 4.9 x 3.9 cm FINDINGS: Liver: Normal echotexture without focal lesion or ductal dilatation. Portal Vein: Hepatopedal flow seen in portal vein. Common Duct: No intraluminal mass or stone visualized. Gallbladder: Demonstrates no wall thickening or pericholecystic fluid. No stones visualized. Gallbla dder Wall: 1 mm Pancreas: The visualized portions are within normal limits Right Kidney: No mass or hydronephrosis Other: There are bilateral pleural effusions. CONCLUSION: 1. No acute finding is identified within the abdomen to explain the abnormal laboratory values. 2. Bilateral pleural effusions. These were also documented on chest CT performed earlier today. Electronically signed by: Shayne Bowling MD 02/03/2018 2:51 PM EDT
[2018-02-03] MEDS: METOPROLOL TARTRATE 25 MG TAB PO SCH (20:59)
[2018-02-04] VITALS (16 sets, daily range): BP systolic 123–148; BP diastolic 74–97; PULSE 59–78; RESP 15–23; TEMP 97.4–98.7; O2SAT 94–100
[2018-02-04] MEDS: MAGNESIUM SULFATE 40 GM PREMIX 1,000 ML IV SCH (02:36)
[2018-02-04] MEDS: SODIUM CHLOR 0.9% 1000 ML INJ 1,000 ML IV SCH (02:44)
[2018-02-04] MEDS: RESP: ALBUTEROL 2.5 MG/IPRATROPIUM 0.5 MG NEB (SCH) INH ×4 (03:41→21:03)
[2018-02-04] MEDS: ENOXAPARIN SODIUM 40 MG/0.4 ML SYRINGE SQ SCH (04:00)
[2018-02-04] MEDS: CHLORHEXIDINE GLUCONATE 2 % 1 PACK (2 CLOTHS) TOP SCH (04:00)
[2018-02-04 04:47] LABS: AUTOMATED NEUTROPHIL # 4.8 TH/MM3 (1.8-7.7); BASOPHIL # 0.1 TH/MM3 (0-0.2); BASOPHIL % 0.6 % (0.0-2.0); EOSINOPHIL # 0.2 TH/MM3 (0-0.4); LYMPH % 35.8 % (9.0-44.0); LYMPHOCYTE # 3.1 TH/MM3 (1.0-4.8); MEAN CELL VOLUME 88.7 FL (80.0-100.0); MEAN CORPUSCULAR HEMOGLOBIN 30.3 PG (27.0-34.0); MEAN CORPUSCULAR HGB CONC 34.1 % (32.0-36.0); MEAN PLATELET VOLUME 8.5 FL (7.0-11.0); MONO % 6.2 % (0.0-8.0); MONOCYTE # 0.5 TH/MM3 (0-0.9); NEUT % 55.4 % (16.0-70.0); PLATELET COUNT 489 TH/MM3 (150-450); RED BLOOD COUNT 4.62 MIL/MM3 (4.00-5.30); RED CELL DISTRIBUTION WIDTH 14.5 % (11.6-17.2); WHITE BLOOD COUNT 8.7 TH/MM3 (4.0-11.0)
[2018-02-04 04:54] LABS: INTERNATIONAL NORMALIZED RATIO 0.9 RATIO; PROTHROMBIN TIME - PATIENT 9.2 SEC (9.8-11.6)
[2018-02-04 05:19] LABS: ALBUMIN 3.1 GM/DL (3.4-5.0); ALKALINE PHOSPHATASE 145 U/L (45-117); ALT (GPT) 80 U/L (10-53); AST (GOT) 56 U/L (15-37); BICARBONATE 27.7 MEQ/L (21.0-32.0); BLOOD UREA NITROGEN 19 MG/DL (7-18); CALCIUM 7.3 MG/DL (8.5-10.1); CHLORIDE 98 MEQ/L (98-107); CREATININE 0.96 MG/DL (0.50-1.00); FREE T4 1.05 NG/DL (0.76-1.46); GLOMERULAR FILTRATION RATE 82 ML/MIN (>89); GLUCOSE,RANDOM 89 MG/DL (74-106); MAGNESIUM 8.1 MG/DL (1.5-2.5); PHOSPHORUS 5.5 MG/DL (2.5-4.9); SODIUM (NA) 137 MEQ/L (136-145); TOTAL BILIRUBIN ADULT 0.3 MG/DL (0.2-1.0); TOTAL PROTEIN 7.3 GM/DL (6.4-8.2)
[2018-02-04 05:21] LABS: CALCIUM-PROTEIN CORRECTED 7.3 MG/DL (8.5-10.1)
--- NOTE | 2018-02-04 06:00 | RADRPT ---
EXAM DATE: 02/04/2018 5:46 AM EDT AGE/SEX: 32 years / Female INDICATIONS: Short of breath. CLINICAL DATA: This is the patient's subsequent encounter. Patient reports that signs and symptoms h ave been present for 4 - 6 days and indicates a pain score of 0/10. MEDICAL/SURGICAL HISTORY: None. None. COMPARISON: [facility] [place], CHEST SINGLE AP, 02/03/2018. . FINDINGS: Compared to the prior exam there has been overall improvement in the bilateral interstitial pulmonary infiltrates. The heart size is stable. There are no pleural effusions or pneumothorax. The bony stru ctures are stable. CONCLUSION: Improving bilateral interstitial pulmonary infiltrates. Electronically signed by: Paul Rocha MD 02/04/2018 5:59 AM EDT
--- NOTE | 2018-02-04 07:56 | HHI.PR ---
Subjective Remarks in no acute distress. feeling better today. sob is better. no chest pain. d/w the RN. Objective Vitals Vital Signs Date Time Temp Pulse Resp B/P (MAP) Pulse Ox O2 Delivery O2 Flow Rate FiO2 02/04/18 06:00 72 02/04/18 04:00 63 02/04/18 04:00 97.9 63 15 139/88 (105) 97 02/04/18 02:00 59 02/04/18 00:00 61 02/04/18 00:00 98.2 61 22 142/90 (107) 96 02/03/18 22:06 19 02/03/18 22:00 71 02/03/18 20:55 20 02/03/18 20:00 71 02/03/18 20:00 97.8 71 16 147/91 (109) 96 02/03/18 19:20 95 21 02/03/18 19:00 97.8 66 26 152/88 (109) 96 02/03/18 18:00 71 02/03/18 18:00 71 23 131/84 (100) 94 02/03/18 17:00 68 19 138/89 (105) 96 02/03/18 16:00 98.0 67 20 145/90 (108) 95 02/03/18 16:00 67 02/03/18 15:00 72 21 149/95 (113) 97 02/03/18 14:00 71 22 132/81 (98) 95 02/03/18 14:00 71 02/03/18 13:30 67 20 130/84 (99) 93 02/03/18 13:00 66 21 141/82 (101) 93 02/03/18 12:30 76 23 123/81 (95) 93 02/03/18 12:00 97.8 71 24 141/88 (105) 90 02/03/18 12:00 71 02/03/18 11:00 74 25 126/79 (95) 93 02/03/18 10:30 75 17 147/90 (109) 99 02/03/18 10:00 72 138/88 (105) 96 02/03/18 10:00 72 02/03/18 09:30 71 145/85 (105) 96 02/03/18 09:15 77 129/71 (90) 94 02/03/18 09:01 74 24 155/89 (111) 95 02/03/18 08:49 96 Nasal Cannula 4.00 02/03/18 08:45 71 20 135/91 (106) 96 02/03/18 08:30 70 21 117/68 (84) 96 02/03/18 08:15 70 25 112/65 (81) 97 02/03/18 08:00 70 02/03/18 08:00 97.8 70 137/82 (100) 93 02/03/18 08:00 70 137/92 I/O 02/03/18 02/03/18 02/03/18 02/04/18 02/04/18 02/04/18 07:00 15:00 23:00 07:00 15:00 23:00 Intake Total 377 ml 600 ml 1500 ml Output Total 2500 ml 2000 ml Balance -2123 ml -1400 ml 1500 ml Intake Oral 600 ml 500 ml IV Total 377 ml 1000 ml Output Urine Total 2500 ml 2000 ml # Voids 6 4 # Sanitary Pads 1 Pads Result Diagram: 02/04/180 02/04/18 0410 Imaging Last Impressions Chest X-Ray 02/04/18 06 Signed Impressions: CONCLUSION: Improving bilateral interstitial pulmonary infiltrates. Liver Ultrasound 02/03/18 0000 Signed Impressions: CONCLUSION: 1. No acute finding is identified within the abdomen to explain the abnormal l aboratory values. 2. Bilateral pleural effusions. These were also documented on chest CT perform ed earlier today. CT Angiography 02/03/18 0000 Signed Impressions: CONCLUSION: 1. No evidence of pulmonary embolism 2. Bilateral interstitial pulmonary infiltrates with small bilateral effusions . This can be seen with pulmonary edema versus pneumonia. Objective Remarks GENERAL: This is a well-nourished, well-developed patient, in no apparent distress. CARDIOVASCULAR: Regular rate and regular rhythm without murmurs, gallops, or rubs. RESPIRATORY: Clear to auscultation. Breath sounds equal bilaterally. No wheezes , rales, or rhonchi. GASTROINTESTINAL: Abdomen soft, non-tender, nondistended. Normal, active bowel sounds MUSCULOSKELETAL: Extremities without clubbing, cyanosis, or edema. NEURO: Alert & Oriented x4 to person, place, time, situation. Moves all ext x4 Medications and IVs Inpatient Medications Acetaminophen (Tylenol) 650 mg Q6H PRN PO PAIN 1-5 AND/OR FEVER >101F Last administered on 02/03/18at 18:40; Start 02/03/18 at 03:00 Albuterol/ Ipratropium (Duoneb Neb) 1 ampule Q2HR NEB PRN INH WHEEZING; Start 02/03/18 at 03:00 Aspirin (Ecotrin Ec) 81 mg DAILY PO Last administered on 02/03/18at 14:34; Start 02/03/18 at 11:45 Bisacodyl (Dulcolax Supp) 10 mg DAILY PRN RECTAL SEVERE CONSITIPATION; Start at 03:00 Calcium Gluconate (Calcium Gluconate Inj) 1 gm UNSCH PRN IV PUSH Magnesium toxicity; Start 02/03/18 at 04:45 Chlorhexidine Gluconate (Chlorhexidine 2% Cloth) 3 pack UNSCH PRN TOP HYGIENIC CARE; Start 02/03/18 at 03:00 Enoxaparin Sodium (Lovenox Inj) 40 mg Q24H SQ Last administered on 02/04/18at 04: 00; Start 02/03/18 at 03:00 Famotidine (Pepcid Inj) 20 mg Q12HR IV PUSH Last administered on 02/03/18at 09:14 ; Start 02/03/18 at 09:00; Stop 02/03/18 at 20:48; Status DC Furosemide (Lasix Inj) 40 mg ONCE ONCE IV PUSH Last administered on 02/03/18at 03:32; Start 02/03/18 at 03:30; Stop 02/03/18 at 03:31; Status DC Lactulose (Lactulose Liq) 30 ml DAILY PRN PO SEVERE CONSITIPATION; Start at 03:00 Lorazepam (Ativan Inj) 1 mg Q1H PRN IV PUSH Agitation/Sedation; Start 02/03/18 at 03:00 Losartan Potassium (Cozaar) 50 mg DAILY PO ; Start 02/04/18 at 09:00 Magnesium Hydroxide (Milk Of Magnesia Liq) 30 ml Q12H PRN PO Mild constipation ; Start 02/03/18 at 03:00 Magnesium Sulfate 100 ml @ 300 mls/hr ONCE ONCE IV Last administered on at 05:06; Start 02/03/18 at 04:45; Stop 02/03/18 at 05:04; Status DC Metoprolol Tartrate (Lopressor) 50 mg Q12HR PO Last administered on 02/03/18 20 :59; Start 02/03/18 at 21:00 Miscellaneous Information ([facility] Nursing Information) 1 [id number] Last administered on 02/03/18 03:00; Start 02/03/18 at 03:00 Morphine Sulfate (Morphine Inj) 2 mg Q2H PRN IV PUSH PAIN SCALE 6 TO 10 Last administered on 02/03/18 21:07; Start 02/03/18 at 03:00 Nicardipine HCl 25 mg/Sodium Chloride 260 ml @ 52 mls/hr TITRATE PRN IV Blood pressure management Last administered on 02/03/18 03:32; Start 02/03/18 at 03:00 Ondansetron HCl (Zofran Odt) 4 mg Q6H PRN PO NAUSEA OR VOMITING; Start at 03:15 Senna/Docusate Sodium (Jaqueline-Colace) 1 tab BID PO Last administered on 02/03/18 20:59; Start 02/03/18 at 09:00 Sennosides (Senokot) 17.2 mg Q12H PRN PO Moderate constipation; Start 02/03/18 at 03:00 Sodium Chloride (NS Flush) 2 ml BID IV FLUSH Last administered on 02/03/18 20: 59; Start 02/03/18 at 09:00 Temazepam (Restoril) 15 mg HS PRN PO INSOMNIA; Start 02/03/18 at 03:00 A/P Assessment and Plan 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 elevated troponin -Pulmonary edema on chest x-ray. Clinically improved following diuresis -2D echo pending -Pleuritic chest pain -CTA negative for pulmonary embolism -cardiology consult appreciated; will continue aspirin, Cozaar and Metoprolol. -TAPE TRANSFERRER following. Hypertension- BP better controlled. - continue BB and Cozaar. Elevated LFTs ? preeclampsia -Magnesium IV per TAPE TRANSFERRER Patient denies IV drug use. hepatitis panel negative. DVT GI prophylaxis -Noé's and SCDs -Lovenox transfer to telemetry. d/w the Del Whitman MD Feb 04, 2018 07:56
--- NOTE | 2018-02-04 07:59 | PD.CARD.PN ---
Subjective Subjective Remarks Dyspnea much better. No further CP. Denies dizziness, palpitations, orthopnea. Slept well. Objective Medications Item Value Date Time Losartan Potassium 50 mg 02/04/18 0900 (Cozaar) DAILY/PO Metoprolol 50 mg 02/03/18 2100 Tartrate Q12HR/PO 02/03/182058 (Lopressor) Aspirin 81 mg 02/03/18 1145 (Ecotrin Ec) DAILY/PO 02/03/18 1434 Enoxaparin Sodium 40 mg 02/03/18 0300 (Lovenox Inj) Q24H/SQ 02/04/18 0400 Current Medications Medications (Trade) Dose Ordered Sig/Justin Route Start Time Stop Time Status Last Admin Sodium Chloride 1,000 ml @ 84 mls/hr [id number] IV 02/03/18 02:54 02/03/18 02:54 (NS Flush) 2 ml UNSCH PRN IV FLUSH 02/03/18 03:00 (NS Flush) 2 ml BID IV FLUSH 02/03/18 09:00 02/03/18 20:59 (Tylenol) 650 mg Q6H PRN PO 02/03/18 03:00 02/03/18 18:40 (Morphine Inj) 2 mg Q2H PRN IV PUSH 02/03/18 03:00 02/03/18 21:07 (Ativan Inj) 1 mg Q1H PRN IV PUSH 02/03/18 03:00 (Zofran Odt) 4 mg Q6H PRN PO 02/03/18 03:15 (Restoril) 15 mg HS PRN PO 02/03/18 03:00 (Duoneb Neb) 1 ampule Q6HR NEB INH 02/03/18 04:00 02/04/18 03:41 (Duoneb Neb) 1 ampule Q2HR NEB PRN INH 02/03/18 03:00 (Lovenox Inj) 40 mg Q24H SQ 02/03/18 03:00 02/04/18 04:00 [place] [facility] [place] 1 Q361D XX 02/03/18 03:00 02/03/18 03:00 (Chlorhexidine 2% Cloth) 3 pack Taper DAILY@04 TOP 02/03/18 04:00 01/30/19 03:59 02/04/18 04:00 (Chlorhexidine 2% Cloth) 3 pack UNSCH PRN TOP 02/03/18 03:00 (Jaqueline-Colace) 1 tab BID PO 02/03/18 09:00 02/03/18 20:59 (Milk Of Magnesia Liq) 30 ml Q12H PRN PO 02/03/18 03:00 (Senokot) 17.2 mg Q12H PRN PO 02/03/18 03:00 (Dulcolax Supp) 10 mg DAILY PRN RECTAL 02/03/18 03:00 (Lactulose Liq) 30 ml DAILY PRN PO 02/03/18 03:00 Nicardipine HCl 25 mg/Sodium Chloride 260 ml @ 52 mls/hr TITRATE PRN IV 02/03/18 03:00 02/03/18 03:32 (Calcium Gluconate Inj) 1 gm UNSCH PRN IV PUSH 02/03/18 04:45 (Cozaar) 50 mg DAILY PO 02/04/18 09:00 (Lopressor) 50 mg Q12HR PO 02/03/18 21:00 02/03/18 20:59 (Ecotrin Ec) 81 mg DAILY PO 02/03/18 11:45 02/03/18 14:34 Vital Signs / I&O Vital Signs Date Time Temp Pulse Resp B/P (MAP) Pulse Ox O2 Delivery O2 Flow Rate FiO2 02/04/18 06:00 72 02/04/18 04:00 63 02/04/18 04:00 97.9 63 15 139/88 (105) 97 02/04/18 02:00 59 02/04/18 00:00 61 02/04/18 00:00 98.2 61 22 142/90 (107) 96 02/03/18 22:06 19 02/03/18 22:00 71 02/03/18 20:55 20 02/03/18 20:00 71 02/03/18 20:00 97.8 71 16 147/91 (109) 96 02/03/18 19:20 95 21 02/03/18 19:00 97.8 66 26 152/88 (109) 96 02/03/18 18:00 71 02/03/18 18:00 71 23 131/84 (100) 94 02/03/18 17:00 68 19 138/89 (105) 96 02/03/18 16:00 98.0 67 20 145/90 (108) 95 02/03/18 16:00 67 02/03/18 15:00 72 21 149/95 (113) 97 02/03/18 14:00 71 22 132/81 (98) 95 02/03/18 14:00 71 02/03/18 13:30 67 20 130/84 (99) 93 02/03/18 13:00 66 21 141/82 (101) 93 02/03/18 12:30 76 23 123/81 (95) 93 02/03/18 12:00 97.8 71 24 141/88 (105) 90 02/03/18 12:00 71 02/03/18 11:00 74 25 126/79 (95) 93 02/03/18 10:30 75 17 147/90 (109) 99 02/03/18 10:00 72 138/88 (105) 96 02/03/18 10:00 72 02/03/18 09:30 71 145/85 (105) 96 02/03/18 09:15 77 129/71 (90) 94 02/03/18 09:01 74 24 155/89 (111) 95 02/03/18 08:49 96 Nasal Cannula 4.00 02/03/18 08:45 71 20 135/91 (106) 96 02/03/18 08:30 70 21 117/68 (84) 96 02/03/18 08:15 70 25 112/65 (81) 97 02/03/18 08:00 70 02/03/18 08:00 97.8 70 137/82 (100) 93 02/03/18 08:00 70 137/92 I/O 02/03/18 02/03/18 02/03/18 02/04/18 02/04/18 02/04/18 07:00 15:00 23:00 07:00 15:00 23:00 Intake Total 377 ml 600 ml 1500 ml Output Total 2500 ml 2000 ml Balance -2123 ml -1400 ml 1500 ml Intake Oral 600 ml 500 ml IV Total 377 ml 1000 ml Output Urine Total 2500 ml 2000 ml # Voids 6 4 # Sanitary Pads 1 Pads Physical Exam GENERAL: Well developed, thin. No acute distress. HEENT: Jugular venous pressure is normal. CHEST: Lungs clear to auscultation. CARDIAC: Regular rate and rhythm without S3, S4, or murmur. ABDOMEN: Soft, nontender, no hepatosplenomegaly. Bowel sounds present. EXTREMITIES: No clubbing, cyanosis, or edema. Laboratory Laboratory Tests Test 02/03/18 09:35 02/03/18 09:58 02/03/18 13:16 02/04/18 04:10 Troponin I 0.27 NG/ML Hepatitis A IgM Antibody NONREACTIVE Hepatitis B Surface Antigen NONREACTIVE Hepatitis B Core IgM Antibody NONREACTIVE Hepatitis C IgG Antibody NONREACTIVE Prothrombin Time 9.2 SEC 9.2 SEC Prothromb Time International Ratio 0.9 RATIO 0.9 RATIO Activated Partial Thromboplast Time 24.2 SEC 25.3 SEC Fibrinogen 440 mg/dL B-Type Natriuretic Peptide 1334 PG/ML White Blood Count 8.7 TH/MM3 Red Blood Count 4.62 MIL/MM3 Hemoglobin 14.0 GM/DL Hematocrit 41.0 % Mean Corpuscular Volume 88.7 FL Mean Corpuscular Hemoglobin 30.3 PG Mean Corpuscular Hemoglobin Concent 34.1 % Red Cell Distribution Width 14.5 % Platelet Count 489 TH/MM3 Mean Platelet Volume 8.5 FL Neutrophils (%) (Auto) 55.4 % Lymphocytes (%) (Auto) 35.8 % Monocytes (%) (Auto) 6.2 % Eosinophils (%) (Auto) 2.0 % Basophils (%) (Auto) 0.6 % Neutrophils # (Auto) 4.8 TH/MM3 Lymphocytes # (Auto) 3.1 TH/MM3 Monocytes # (Auto) 0.5 TH/MM3 Eosinophils # (Auto) 0.2 TH/MM3 Basophils # (Auto) 0.1 TH/MM3 CBC Comment DIFF FINAL Differential Comment Blood Urea Nitrogen 19 MG/DL Creatinine 0.96 MG/DL Random Glucose 89 MG/DL Total Protein 7.3 GM/DL Albumin 3.1 GM/DL Calcium Level 7.3 MG/DL Phosphorus Level 5.5 MG/DL Magnesium Level 8.1 MG/DL Alkaline Phosphatase 145 U/L Aspartate Amino Transf (AST/SGOT) 56 U/L Alanine Aminotransferase (ALT/SGPT) 80 U/L Total Bilirubin 0.3 MG/DL Sodium Level 137 MEQ/L Potassium Level 4.3 MEQ/L Chloride Level 98 MEQ/L Carbon Dioxide Level 27.7 MEQ/L Anion Gap 11 MEQ/L Estimat Glomerular Filtration Rate 82 ML/MIN Lactic Acid Level 2.2 mmol/L Protein Corrected Calcium 7.3 MG/DL Free Thyroxine 1.05 NG/DL Thyroid Stimulating Hormone 3rd Gen 1.000 uIU/ML Imaging Last 24 hours Impressions Chest X-Ray 02/04/18 0600 Signed Impressions: CONCLUSION: Improving bilateral interstitial pulmonary infiltrates. Assessment and Plan Problem List: (1) Elevated troponin ICD Codes: R74.8 - Abnormal levels of other serum enzymes Status: Acute Plan: Stable overnight. No further atypical CP. Troponin levels minimally increased, more likely due to hypertension, cardiomyopathy, cocaine, rather than obstructive CAD. Recommend no additional w/u. OK for discharge later today or tomorrow from cardiac standpoint. (2) Congestive heart failure (CHF) ICD Codes: I50.9 - Heart failure, unspecified Status: Acute Plan: Symptomatically much improved. Chest x-ray improved. Continue beta phyllis, ARB, optimize BP control. 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 Symptomatically much improved. Recommend tubal ligation, continue beta phyllis/ARB, aspirin. OK for discharge later today or tomorrow from cardiac standpoint. Stressed importance of compliance with medications. Code Status full code Discussed Condition With patient Problem Qualifiers (1) Congestive heart failure (CHF): Qualified Codes: I50.21 - Acute systolic (congestive) heart failure Delta Barba MD Feb 04, 2018 07:59
[2018-02-04] MEDS: ASPIRIN EC 81 MG TABEC PO SCH (08:32)
[2018-02-04] MEDS: METOPROLOL TARTRATE 25 MG TAB PO SCH ×2 (08:32→20:18)
[2018-02-04] MEDS: DOCUSATE SODIUM 50 MG/SENNA 8.6 MG TAB PO SCH ×2 (08:32→20:18)
--- NOTE | 2018-02-04 08:32 | HHI.PR ---
Subjective Remarks Patient is doing well this morning, eating breakfast. She no longer has chest pain or shortness of breath. She slept well last night. Discussed the importance of taking scheduled BP medications to manage her blood pressure. Objective Vital Signs Date Time Temp Pulse Resp B/P (MAP) Pulse Ox O2 Delivery O2 Flow Rate FiO2 02/04/18 06:00 72 02/04/18 04:00 63 02/04/18 04:00 97.9 63 15 139/88 (105) 97 02/04/18 02:00 59 02/04/18 00:00 61 02/04/18 00:00 98.2 61 22 142/90 (107) 96 02/03/18 22:06 19 02/03/18 22:00 71 02/03/18 20:55 20 02/03/18 20:00 71 02/03/18 20:00 97.8 71 16 147/91 (109) 96 02/03/18 19:20 95 21 02/03/18 19:00 97.8 66 26 152/88 (109) 96 02/03/18 18:00 71 02/03/18 18:00 71 23 131/84 (100) 94 02/03/18 17:00 68 19 138/89 (105) 96 02/03/18 16:00 98.0 67 20 145/90 (108) 95 02/03/18 16:00 67 02/03/18 15:00 72 21 149/95 (113) 97 02/03/18 14:00 71 22 132/81 (98) 95 02/03/18 14:00 71 02/03/18 13:30 67 20 130/84 (99) 93 02/03/18 13:00 66 21 141/82 (101) 93 02/03/18 12:30 76 23 123/81 (95) 93 02/03/18 12:00 97.8 71 24 141/88 (105) 90 02/03/18 12:00 71 02/03/18 11:00 74 25 126/79 (95) 93 02/03/18 10:30 75 17 147/90 (109) 99 02/03/18 10:00 72 138/88 (105) 96 02/03/18 10:00 72 02/03/18 09:30 71 145/85 (105) 96 02/03/18 09:15 77 129/71 (90) 94 02/03/18 09:01 74 24 155/89 (111) 95 02/03/18 08:49 96 Nasal Cannula 4.00 02/03/18 08:45 71 20 135/91 (106) 96 I/O 02/03/18 02/03/18 02/03/18 02/04/18 02/04/18 02/04/18 07:00 15:00 23:00 07:00 15:00 23:00 Intake Total 377 ml 600 ml 1500 ml Output Total 2500 ml 2000 ml Balance -2123 ml -1400 ml 1500 ml Intake Oral 600 ml 500 ml IV Total 377 ml 1000 ml Output Urine Total 2500 ml 2000 ml # Voids 6 4 # Sanitary Pads 1 Pads Result Diagram: 02/04/18 0410 02/04/18 0410 Imaging Last Impressions Chest X-Ray 02/04/18 0600 Signed Impressions: CONCLUSION: Improving bilateral interstitial pulmonary infiltrates. Liver Ultrasound 02/03/18 0000 Signed Impressions: CONCLUSION: 1. No acute finding is identified within the abdomen to explain the abnormal l aboratory values. 2. Bilateral pleural effusions. These were also documented on chest CT perform ed earlier today. CT Angiography 02/03/18 0000 Signed Impressions: CONCLUSION: 1. No evidence of pulmonary embolism 2. Bilateral interstitial pulmonary infiltrates with small bilateral effusions . This can be seen with pulmonary edema versus pneumonia. Objective Remarks GENERAL: Well-nourished, well-developed patient sitting upright in bed, eating breakfast, SKIN: Warm and dry. HEAD: Normocephalic. EYES: No scleral icterus. No injection or drainage. NECK: Supple, trachea midline. No JVD or lymphadenopathy. CARDIOVASCULAR: Regular rate and rhythm without murmurs, gallops, or rubs. RESPIRATORY: Breath sounds equal bilaterally. No accessory muscle use. CTAB GASTROINTESTINAL: Abdomen soft, non-tender, nondistended. Normoactive bowel sounds. Fundus is soft and nontender MUSCULOSKELETAL: No cyanosis, or edema. BACK: Nontender without obvious deformity. No CVA tenderness. Assessment and Plan Problem List: (1) Severe pre-eclampsia, ICD Codes: O14.15 - Severe pre-eclampsia, complicating the puerperium Plan: 32 yo F with who is day 5 who presented to the emergency room with chest pain, shortness of breath. Chest x-ray significant for pulmonary edema patient also with elevated blood pressures up to 169/106. Diagnosed with severe preeclampsia. Admitted to critical care and started on nicardipine drip, IV magnesium, diurese with Lasix 40 mg IV once. Pressures improved and shortness of breath improved, no longer on oxygen and Nicardipine drip was discontinued. Respiratory failure -Resolved, off oxygen * No shortness of breath or chest pain -2D echo pending Hypertension -Initially required Nicardipine drip -Now on Metoprol 50 mg PO BID, Losartan 50 mg PO once daily Preeclampsia with severe features -In setting of pulmonary edema, hypertension -IV magnesium on admission, discontinued today at 5am after 24 hours of administration -Elevated LFTs noted on admission, trending -Primary team is Randal hospitalist * Transfer to telemetry floor today * Cleared for discharge per cardiology DVT GI prophylaxis -Noé's and SCDs -Lovenox -Pepcid Discussed Condition With Patient, Dr. Gerber Discharge Planning Per hospitalist team Darlene Harris MD R2 Feb 04, 2018 08:32
[2018-02-04] MEDS: LOSARTAN 50 MG TAB PO SCH (08:36)
[2018-02-04] MEDS: SODIUM CHLORIDE 0.9% FLUSH 10 ML FLUSH IV FLUSH SCH ×2 (08:37→20:17)
[2018-02-04 08:42] LABS: ALBUMIN 2.9 GM/DL (3.4-5.0); BICARBONATE 26.3 MEQ/L (21.0-32.0); CREATININE 0.91 MG/DL (0.50-1.00); MAGNESIUM 6.2 MG/DL (1.5-2.5); PHOSPHORUS 4.6 MG/DL (2.5-4.9); TOTAL BILIRUBIN ADULT 0.2 MG/DL (0.2-1.0)
[2018-02-04 08:45] LABS: CALCIUM-PROTEIN CORRECTED 7.1 MG/DL (8.5-10.1)
[2018-02-04] MEDS: MORPHINE SULFATE 4 MG/ML INJ IV PUSH PRN ×2 (11:56→21:58)
[2018-02-04 16:34] LABS: HEMOGLOBIN A1C 4.8 % (4.3-6.0)
[2018-02-05] VITALS (22 sets, daily range): BP systolic 119–150; BP diastolic 69–100; PULSE 54–77; RESP 16–23; TEMP 97.6–97.9; O2SAT 96–99
[2018-02-05] MEDS: ENOXAPARIN SODIUM 40 MG/0.4 ML SYRINGE SQ SCH (03:26)
[2018-02-05] MEDS: CHLORHEXIDINE GLUCONATE 2 % 1 PACK (2 CLOTHS) TOP SCH (04:00)
[2018-02-05] MEDS: RESP: ALBUTEROL 2.5 MG/IPRATROPIUM 0.5 MG NEB (SCH) INH ×2 (04:31→10:40)
[2018-02-05 05:26] LABS: AUTOMATED NEUTROPHIL # 5.4 TH/MM3 (1.8-7.7); BASOPHIL # 0.1 TH/MM3 (0-0.2); BASOPHIL % 0.7 % (0.0-2.0); EOSINOPHIL # 0.2 TH/MM3 (0-0.4); EOSINOPHIL % 2.3 % (0.0-4.0); HEMATOCRIT 38.9 % (35.0-46.0); HEMOGLOBIN 13.1 GM/DL (11.6-15.3); LYMPH % 32.8 % (9.0-44.0); LYMPHOCYTE # 3.1 TH/MM3 (1.0-4.8); MEAN CORPUSCULAR HEMOGLOBIN 29.8 PG (27.0-34.0); MEAN CORPUSCULAR HGB CONC 33.5 % (32.0-36.0); MEAN PLATELET VOLUME 8.2 FL (7.0-11.0); MONO % 7.6 % (0.0-8.0); MONOCYTE # 0.7 TH/MM3 (0-0.9); NEUT % 56.6 % (16.0-70.0); PLATELET COUNT 442 TH/MM3 (150-450); RED BLOOD COUNT 4.37 MIL/MM3 (4.00-5.30); WHITE BLOOD COUNT 9.6 TH/MM3 (4.0-11.0)
[2018-02-05 06:08] LABS: ALBUMIN 2.9 GM/DL (3.4-5.0); ALKALINE PHOSPHATASE 111 U/L (45-117); ALT (GPT) 50 U/L (10-53); AST (GOT) 23 U/L (15-37); BICARBONATE 24.4 MEQ/L (21.0-32.0); BLOOD UREA NITROGEN 19 MG/DL (7-18); CALCIUM 8.3 MG/DL (8.5-10.1); CHLORIDE 105 MEQ/L (98-107); CREATININE 0.74 MG/DL (0.50-1.00); GLOMERULAR FILTRATION RATE 111 ML/MIN (>89); GLUCOSE,RANDOM 77 MG/DL (74-106); MAGNESIUM 2.7 MG/DL (1.5-2.5); PHOSPHORUS 4.2 MG/DL (2.5-4.9); SODIUM (NA) 139 MEQ/L (136-145); TOTAL BILIRUBIN ADULT 0.3 MG/DL (0.2-1.0); TOTAL PROTEIN 6.9 GM/DL (6.4-8.2)
--- NOTE | 2018-02-05 08:13 | HHI.PR ---
Subjective Remarks in no acute distress. resting comfortably. no chest pain or sob. d/w the RN and no acute issues over night. Objective Vitals Vital Signs Date Time Temp Pulse Resp B/P (MAP) Pulse Ox O2 Delivery O2 Flow Rate FiO2 02/05/18 04:00 97.6 62 20 119/72 (88) 96 02/05/18 04:00 62 02/05/18 00:00 97.9 59 22 140/85 (103) 97 02/05/18 00:00 59 02/04/18 22:08 17 02/04/18 21:03 97 21 02/04/18 20:00 71 02/04/18 20:00 97.4 71 22 134/88 (103) 97 02/04/18 16:00 65 19 98 02/04/18 16:00 65 02/04/18 14:00 66 02/04/18 13:17 67 02/04/18 13:17 67 123/80 (94) 97 02/04/18 12:00 69 02/04/18 12:00 69 97 02/04/18 11:00 67 02/04/18 10:22 70 128/74 (92) 97 02/04/18 10:22 70 02/04/18 10:22 70 128/74 (92) 97 02/04/18 10:00 78 23 94 02/04/18 10:00 78 02/04/18 10:00 78 23 94 02/04/18 09:46 96 I/O 02/04/18 02/04/18 02/04/18 02/05/18 02/05/18 02/05/18 07:00 15:00 23:00 07:00 15:00 23:00 Intake Total 1500 ml 2100 ml 600 ml Balance 1500 ml 2100 ml 600 ml Intake Oral 500 ml 2100 ml 600 ml IV Total 1000 ml # Voids 4 8 3 # Sanitary Pads 1 Pads 1 Pads 1 Pads Result Diagram: 02/05/18 0450 02/05/18 0450 Imaging Last Impressions Chest X-Ray 02/04/18 0600 Signed Impressions: CONCLUSION: Improving bilateral interstitial pulmonary infiltrates. Liver Ultrasound 02/03/18 0000 Signed Impressions: CONCLUSION: 1. No acute finding is identified within the abdomen to explain the abnormal l aboratory values. 2. Bilateral pleural effusions. These were also documented on chest CT perform ed earlier today. CT Angiography 02/03/18 0000 Signed Impressions: CONCLUSION: 1. No evidence of pulmonary embolism 2. Bilateral interstitial pulmonary infiltrates with small bilateral effusions . This can be seen with pulmonary edema versus pneumonia. Objective Remarks GENERAL: This is a well-nourished, well-developed patient, in no apparent distress. CARDIOVASCULAR: Regular rate and regular rhythm without murmurs, gallops, or rubs. RESPIRATORY: Clear to auscultation. Breath sounds equal bilaterally. No wheezes , rales, or rhonchi. GASTROINTESTINAL: Abdomen soft, non-tender, nondistended. Normal, active bowel sounds MUSCULOSKELETAL: Extremities without clubbing, cyanosis, or edema. NEURO: Alert & Oriented x4 to person, place, time, situation. Moves all ext x4 Procedures none Medications and IVs Inpatient Medications Acetaminophen (Tylenol) 650 mg Q6H PRN PO PAIN 1-5 AND/OR FEVER >101F Last administered on 02/03/18at 18:40; Start 02/03/18 at 03:00 Albuterol/ Ipratropium (Duoneb Neb) 1 ampule Q2HR NEB PRN INH WHEEZING; Start 02/03/18 at 03:00 Aspirin (Ecotrin Ec) 81 mg DAILY PO Last administered on 02/04/18at 08:32; Start 02/03/18 at 11:45 Bisacodyl (Dulcolax Supp) 10 mg DAILY PRN RECTAL SEVERE CONSITIPATION; Start at 03:00 Calcium Gluconate (Calcium Gluconate Inj) 1 gm UNSCH PRN IV PUSH Magnesium toxicity; Start 02/03/18 at 04:45 Chlorhexidine Gluconate (Chlorhexidine 2% Cloth) 3 pack UNSCH PRN TOP HYGIENIC CARE; Start 02/03/18 at 03:00 Enoxaparin Sodium (Lovenox Inj) 40 mg Q24H SQ Last administered on 02/05/18at 03: 26; Start 02/03/18 at 03:00 Famotidine (Pepcid Inj) 20 mg Q12HR IV PUSH Last administered on 02/03/18at 09:14 ; Start 02/03/18 at 09:00; Stop 02/03/18 at 20:48; Status DC Furosemide (Lasix Inj) 40 mg ONCE ONCE IV PUSH Last administered on 02/03/18 03:32; Start 02/03/18 at 03:30; Stop 02/03/18 at 03:31; Status DC Lactulose (Lactulose Liq) 30 ml DAILY PRN PO SEVERE CONSITIPATION; Start at 03:00 Lorazepam (Ativan Inj) 1 mg Q1H PRN IV PUSH Agitation/Sedation; Start 02/03/18 at 03:00 Losartan Potassium (Cozaar) 50 mg DAILY PO Last administered on 02/04/18 08:36 ; Start 02/04/18 at 09:00 Magnesium Hydroxide (Milk Of Magnesia Liq) 30 ml Q12H PRN PO Mild constipation ; Start 02/03/18 at 03:00 Magnesium Sulfate 100 ml @ 300 mls/hr ONCE ONCE IV Last administered on 05:06; Start 02/03/18 at 04:45; Stop 02/03/18 at 05:04; Status DC Metoprolol Tartrate (Lopressor) 50 mg Q12HR PO Last administered on 02/04/18 20 :18; Start 02/03/18 at 21:00 Miscellaneous Information ([facility] [place] Nursing Information) 1 Q361D XX Last administered on 02/03/18 03:00; Start 02/03/18 at 03:00 Morphine Sulfate (Morphine Inj) 2 mg Q2H PRN IV PUSH PAIN SCALE 6 TO 10 Last administered on 02/04/18 21:58; Start 02/03/18 at 03:00 Nicardipine HCl 25 mg/Sodium Chloride 260 ml @ 52 mls/hr TITRATE PRN IV Blood pressure management Last administered on 02/03/18 03:32; Start 02/03/18 at 03:00 Ondansetron HCl (Zofran Odt) 4 mg Q6H PRN PO NAUSEA OR VOMITING; Start at 03:15 Senna/Docusate Sodium (Jaqueline-Colace) 1 tab BID PO Last administered on 02/04/18at 08:32; Start 02/03/18 at 09:00 Sennosides (Senokot) 17.2 mg Q12H PRN PO Moderate constipation; Start 02/03/18 at 03:00 Sodium Chloride (NS Flush) 2 ml BID IV FLUSH Last administered on 6/5/18at 20: 17; Start 02/03/18 at 09:00 Temazepam (Restoril) 15 mg HS PRN PO INSOMNIA; Start 02/03/18 at 03:00 A/P Assessment and Plan 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 elevated troponin -Pulmonary edema on chest x-ray. Clinically improved following diuresis -2D echo pending -Pleuritic chest pain -CTA negative for pulmonary embolism -cardiology consult appreciated; will continue aspirin, Cozaar and Metoprolol. -cleared by cardiology and [employer] for discharge. Hypertension- BP better controlled. - continue BB and Cozaar. Elevated LFTs- improving. Patient denies IV drug use. hepatitis panel negative. DVT GI prophylaxis -Noé's and SCDs -Lovenox Discharge Planning dc home later today after the echo is completed. 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 see med list. d/w the patient and [employer], RN. previously d/w . Del Mosley MD Feb 05, 2018 08:13
[2018-02-05] MEDS ORDERED: COZA50TA PO (08:17)
[2018-02-05] MEDS ORDERED: METO25TA3 PO (08:17)
[2018-02-05] MEDS ORDERED: ECASA81 PO (08:17)
--- NOTE | 2018-02-05 08:18 | HHI.DS ---
Discharge Summary Admission Date Feb 03, 2018 at 02:45 Discharge Date: Feb 05, 2018 Admitting Diagnosis cardiomyopathy (1) Congestive heart failure (CHF) ICD Code: I50.9 - Heart failure, unspecified Diagnosis: Principal Status: Acute Procedures none Brief History - From Admission 32-year-old very pleasant female 6 para 5 who is now 3 days from vaginal delivery at [facility]. She presents today with a complaint of increasing shortness of breath and chest pain over the last 24 hour. The delivery went well but she has been complaining of a constant right -sided chest discomfort that intermittently becomes more severe. This increases with deep breathing and is and is relieved by certain positional changes. She does not have a prior cardiac history, however she has abnormal EKG showing anterolateral T-wave inversion which is new since EKG in 2014. The echocardiogram was performed at the [facility] per patient shows that she has a " weak" heart. She denies any recent syncope or presyncope, or palpitation. She has a been physically active prior to the of her child without symptoms. The toxicology screen performed at the [facility] was positive for cocaine and opiates although she denies any cocaine use within the last 2 years. She smokes half pack of cigarettes per day and has been hypertensive since delivery. She was discharged from [facility] with prescription for metoprolol and lisinopril, however she has been using only the metoprolol since lisinopril makes her dizzy. She presents today complaining of generalized pain everywhere but is also having significant shortness of breath. CBC/BMP: 02/05/18 0450 02/05/18 0450 Significant Findings Laboratory Tests Test 02/03/18 01:38 02/03/18 02:25 02/03/18 02:45 02/03/18 09:35 Urine Bacteria RARE /hpf (NONE) White Blood Count 13.2 TH/MM3 (4.0-11.0) Red Blood Count 3.76 MIL/MM3 (4.00-5.30) Hemoglobin 10.9 GM/DL (11.6-15.3) Hematocrit 33.2 % (35.0-46.0) Neutrophils # (Auto) 8.8 TH/MM3 (1.8-7.7) Total Protein 6.3 GM/DL (6.4-8.2) Albumin 2.6 GM/DL (3.4-5.0) Calcium Level 7.9 MG/DL (8.5-10.1) Alkaline Phosphatase 141 U/L (45-117) Aspartate Amino Transf (AST/SGOT) 69 U/L (15-37) Alanine Aminotransferase (ALT/SGPT) 67 U/L (10-53) Troponin I 0.08 NG/ML (0.02-0.05) 0.27 NG/ML (0.02-0.05) Test 02/03/18 09:58 02/03/18 13:16 02/04/18 04:10 02/04/18 07:56 Prothrombin Time 9.2 SEC (9.8-11.6) 9.2 SEC (9.8-11.6) Activated Partial Thromboplast Time 24.2 SEC (24.3-30.1) Fibrinogen 440 mg/dL (227-377) B-Type Natriuretic Peptide 1334 PG/ML (0-100) Platelet Count 489 TH/MM3 (150-450) Blood Urea Nitrogen 19 MG/DL (7-18) 19 MG/DL (7-18) Albumin 3.1 GM/DL (3.4-5.0) 2.9 GM/DL (3.4-5.0) Calcium Level 7.3 MG/DL (8.5-10.1) 7.0 MG/DL (8.5-10.1) Phosphorus Level 5.5 MG/DL (2.5-4.9) Magnesium Level 8.1 MG/DL (1.5-2.5) 6.2 MG/DL (1.5-2.5) Alkaline Phosphatase 145 U/L (45-117) 135 U/L (45-117) Aspartate Amino Transf (AST/SGOT) 56 U/L (15-37) 53 U/L (15-37) Alanine Aminotransferase (ALT/SGPT) 80 U/L (10-53) 73 U/L (10-53) Estimat Glomerular Filtration Rate 82 ML/MIN (>89) 87 ML/MIN (>89) Lactic Acid Level 2.2 mmol/L (0.4-2.0) Protein Corrected Calcium 7.3 MG/DL (8.5-10.1) 7.1 MG/DL (8.5-10.1) Test 02/04/18 11:30 02/05/18 04:50 Calcium Level 7.5 MG/DL (8.5-10.1) 8.3 MG/DL (8.5-10.1) Blood Urea Nitrogen 19 MG/DL (7-18) Albumin 2.9 GM/DL (3.4-5.0) Magnesium Level 2.7 MG/DL (1.5-2.5) Imaging Last Impressions Chest X-Ray 02/04/18 0600 Signed Impressions: CONCLUSION: Improving bilateral interstitial pulmonary infiltrates. Liver Ultrasound 02/03/18 0000 Signed Impressions: CONCLUSION: 1. No acute finding is identified within the abdomen to explain the abnormal l aboratory values. 2. Bilateral pleural effusions. These were also documented on chest CT perform ed earlier today. CT Angiography 02/03/18 0000 Signed Impressions: CONCLUSION: 1. No evidence of pulmonary embolism 2. Bilateral interstitial pulmonary infiltrates with small bilateral effusions . This can be seen with pulmonary edema versus pneumonia. PE at Discharge GENERAL: This is a well-nourished, well-developed patient, in no apparent distress. CARDIOVASCULAR: Regular rate and regular rhythm without murmurs, gallops, or rubs. RESPIRATORY: Clear to auscultation. Breath sounds equal bilaterally. No wheezes , rales, or rhonchi. GASTROINTESTINAL: Abdomen soft, non-tender, nondistended. Normal, active bowel sounds MUSCULOSKELETAL: Extremities without clubbing, cyanosis, or edema. NEURO: Alert & Oriented x4 to person, place, time, situation. 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 elevated troponin -Pulmonary edema on chest x-ray. Clinically improved following diuresis -2D echo pending -Pleuritic chest pain -CTA negative for pulmonary embolism -cardiology consult appreciated; will continue aspirin, Cozaar and Metoprolol. 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 Hypertension- BP better controlled. - continue BB and Cozaar. Elevated LFTs- improving. Patient denies IV drug use. hepatitis panel negative. DVT GI prophylaxis -Noé's and SCDs -Lovenox Pt Condition on Discharge: Stable Discharge Disposition: Discharge Home Discharge Time: <= 30 minutes Discharge Instructions DIET: Follow Instructions for: Heart Healthy Diet Activities you can perform: Regular-No Restrictions Del Mosley MD Feb 05, 2018 08:18
--- NOTE | 2018-02-05 08:31 | PD.CONS ---
HPI Chief Complaint Shortness of breath Date Seen: Feb 05, 2018 Time Seen: 08:00 Travel History International Travel<30 Days: No Contact w/Intl Traveler<30Days: No Known Affected Area: No History of Present Illness HPI Patient is a 32-year-old who is day 6 from a vaginal delivery at [facility] who presented to the ED on 02/03 with complaints of shortness of breath, chest pain over the previous 24 hours. Of note she was hypertensive during her and was prescribed metoprolol and lisinopril and discharge however patient had only been taking the metoprolol as the lisinopril made her "dizzy." Chest x-ray on admission showed pulmonary edema and she was hypertensive to the 160s over 100s. Patient was admitted to ICU for preeclampsia /hypertensive crisis. Patient was placed on nicardipine drip and was diuresed for her pulmonary edema as well as started on magnesium for 24 hours preeclampsia. Her blood pressure has since been well-controlled on p.o. metoprolol, losartan. This morning, patient feels back at her baseline. Denies chest pain, shortness of breath, headaches, blurry vision, abdominal pain. Patient's blood pressures have been well controlled over the past 24 hours and labs have continued to normalize. Allergies-Medications (Allergen,Severity, Reaction): Coded Allergies: No Known Allergies (Verified , 02/19/17) Home Meds Active Scripts Aspirin DR (Aspirin DR) 81 Mg Tabdr, 81 MG PO DAILY for antiplatelet for 30 Days , #30 TAB 0 Refills Prov:Del Mosley MD 02/05/18 Losartan (Cozaar) 50 Mg Tab, 50 MG PO DAILY for hypertension for 30 Days, #30 TAB 0 Refills Prov:Del Mosley MD 02/05/18 Metoprolol Tartrate (Metoprolol Tartrate) 25 Mg Tab, 50 MG PO Q12HR for hypertension for 30 Days, TAB 0 Refills Prov:Del Mosley MD 02/05/18 Nitrofurantoin Monohydrate Macrocrystals (Macrobid) 100 Mg Capsule, 100 MG PO BID for Infection for 7 Days, #14 CAP 0 Refills Prov:Hipolito Mcdonnell MD 10/12/17 Oseltamivir (Tamiflu) 75 Mg Cap, 75 MG PO DAILY for Mgmt Viral Infection for 5 Days, #5 CAP 0 Refills Prov:Hipolito Mcdonnell MD 10/12/17 Albuterol 8.5 GM Inh (Proair Hfa 8.5 GM Inh) 90 Mcg/Act Aer, 2 PUFF INH Q4-6H Y for SHORTNESS OF BREATH, #1 INHALER 0 Refills 108 mcg/actuation Prov:Markell Nowak MD 06/29/17 Azithromycin (Azithromycin) 250 Mg Tab, 250 MG PO DIRECTED for Infection, #6 TAB 0 Refills Take 2 tabs (500 mg) on day 1 then 1 tab daily x 4 days. Prov:Markell Nowak MD 06/29/17 Ibuprofen (Ibuprofen) 800 Mg Tab, 800 MG PO TID for Pain, #21 TAB Prov:Lotus Koenig MD 02/24/17 Hydrocodone-Acetaminophen (Lortab) 5-325 Mg Tab, 1 TAB PO Q6H Y for PAIN, #12 TAB 0 Refills Prov:Lotus Koenig MD 02/19/17 Physical Exam Vital Signs Date Time Temp Pulse Resp B/P (MAP) Pulse Ox O2 Delivery O2 Flow Rate FiO2 02/05/18 04:00 97.6 62 20 119/72 (88) 96 02/05/18 04:00 62 02/05/18 00:00 97.9 59 22 140/85 (103) 97 02/05/18 00:00 59 02/04/18 22:08 17 02/04/18 21:03 97 21 02/04/18 20:00 71 02/04/18 20:00 97.4 71 22 134/88 (103) 97 02/04/18 16:00 65 19 98 02/04/18 16:00 65 02/04/18 14:00 66 02/04/18 13:17 67 02/04/18 13:17 67 123/80 (94) 97 02/04/18 12:00 69 02/04/18 12:00 69 97 02/04/18 11:00 67 02/04/18 10:22 70 128/74 (92) 97 02/04/18 10:22 70 02/04/18 10:22 70 128/74 (92) 97 02/04/18 10:00 78 23 94 02/04/18 10:00 78 02/04/18 10:00 78 23 94 02/04/18 09:46 96 Narrative GENERAL: Well-nourished, well-developed patient resting comfortably in bed. SKIN: Warm and dry. HEAD: Normocephalic. EYES: No scleral icterus. No injection or drainage. NECK: Supple, trachea midline. No JVD or lymphadenopathy. CARDIOVASCULAR: Regular rate and rhythm without murmurs, gallops, or rubs. RESPIRATORY: Breath sounds equal bilaterally. No accessory muscle use. CTAB GASTROINTESTINAL: Abdomen soft, non-tender, nondistended. Normoactive bowel sounds. Fundus is soft and nontender MUSCULOSKELETAL: No cyanosis, or edema. BACK: Nontender without obvious deformity. No CVA tenderness. Data Data Orders Orders Attending Discharge Order (02/05/18 ) Labs Laboratory Tests Test 02/04/18 11:30 02/05/18 04:50 Calcium Level 7.5 8.3 White Blood Count 9.6 Red Blood Count 4.37 Hemoglobin 13.1 Hematocrit 38.9 Mean Corpuscular Volume 89.0 Mean Corpuscular Hemoglobin 29.8 Mean Corpuscular Hemoglobin Concent 33.5 Red Cell Distribution Width 14.0 Platelet Count 442 Mean Platelet Volume 8.2 Neutrophils (%) (Auto) 56.6 Lymphocytes (%) (Auto) 32.8 Monocytes (%) (Auto) 7.6 Eosinophils (%) (Auto) 2.3 Basophils (%) (Auto) 0.7 Neutrophils # (Auto) 5.4 Lymphocytes # (Auto) 3.1 Monocytes # (Auto) 0.7 Eosinophils # (Auto) 0.2 Basophils # (Auto) 0.1 CBC Comment DIFF FINAL Differential Comment Blood Urea Nitrogen 19 Creatinine 0.74 Random Glucose 77 Total Protein 6.9 Albumin 2.9 Phosphorus Level 4.2 Magnesium Level 2.7 Alkaline Phosphatase 111 Aspartate Amino Transf (AST/SGOT) 23 Alanine Aminotransferase (ALT/SGPT) 50 Total Bilirubin 0.3 Sodium Level 139 Potassium Level 5.1 Chloride Level 105 Carbon Dioxide Level 24.4 Anion Gap 10 Estimat Glomerular Filtration Rate 111 MDM Plan 32 yo F with who is day 6 who presented to the emergency room with chest pain, shortness of breath. Chest x-ray significant for pulmonary edema patient also with elevated blood pressures up to 169/106. Diagnosed with severe preeclampsia. Admitted to critical care and started on nicardipine drip , IV magnesium, diurese with Lasix 40 mg IV once. Pressures improved and shortness of breath improved, no longer on oxygen and Nicardipine drip was discontinued. Respiratory failure -Resolved, off oxygen * No shortness of breath or chest pain -2D echo pending Hypertension -Initially required Nicardipine drip -Now on Metoprol 50 mg PO BID, Losartan 50 mg PO once daily -Normotensive over last 24 hours. 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 Recommend continuing p.o. blood pressure medications with close follow-up. Scripts Aspirin DR (Aspirin DR) 81 Mg Tabdr 81 MG PO DAILY for antiplatelet for 30 Days, #30 TAB 0 Refills Prov: Del Mosley MD 02/05/18 Losartan (Cozaar) 50 Mg Tab 50 MG PO DAILY for hypertension for 30 Days, #30 TAB 0 Refills Prov: Del Mosley MD 02/05/18 Metoprolol Tartrate (Metoprolol Tartrate) 25 Mg Tab 50 MG PO Q12HR for hypertension for 30 Days, TAB 0 Refills Prov: Del Mosley MD 02/05/18 Clayton Moran MD R1 Feb 05, 2018 08:31
[2018-02-05] MEDS: LOSARTAN 50 MG TAB PO SCH (08:36)
[2018-02-05] MEDS: METOPROLOL TARTRATE 25 MG TAB PO SCH (08:36)
[2018-02-05] MEDS: ASPIRIN EC 81 MG TABEC PO SCH (08:36)
[2018-02-05] MEDS: DOCUSATE SODIUM 50 MG/SENNA 8.6 MG TAB PO SCH (08:36)
[2018-02-05] MEDS: SODIUM CHLORIDE 0.9% FLUSH 10 ML FLUSH IV FLUSH SCH (08:52)
[2018-02-05] MEDS: MORPHINE SULFATE 4 MG/ML INJ IV PUSH PRN (11:15)
--- NOTE | 2018-02-05 13:12 | ECHRPT ---
Indication: CARDIOMYOPATHY CONCLUSIONS Mildly dilated left ventricle. Wall thickness is normal. The left ventricular systolic function is moderately reduced with an estimated ejection fraction of 40%. Mild mitral valve regurgitation. BP: 119 / 72 HR: 62 Rhythm: Sinus MEASUREMENTS (Male / Female) Normal Values Technical Quality:Fair 2D ECHO LV Diastolic Diameter PLAX 5.8 cm 4.2 - 5.9 / 3.9 - 5.3 cm LV Systolic Diameter PLAX 4.9 cm IVS Diastolic Thickness 0.8 cm 0.6 - 1.0 / 0.6 - 0.9 cm LVPW Diastolic Thickness 1.0 cm 0.6 - 1.0 / 0.6 - 0.9 cm LV Relative Wall Thickness 0.3 RV Internal Dim ED PLAX 2.0 cm LVOT Diameter 2.0 cm Aortic Root Diameter 2.2 cm LA Systolic Diameter LX 2.5 cm 3.0 - 4.0 / 2.7 - 3.8 cm M-MODE AV Cusp Separation MM 1.6 cm DOPPLER AV Peak Velocity 150.0 cm/s AV Peak Gradient 9.0 mmHg AV Mean Gradient 5.0 mmHg AV Velocity Time Integral 22.6 cm LVOT Peak Velocity 102.0 cm/s LVOT Peak Gradient 4.2 mmHg LVOT Velocity Time Integral 15.5 cm AV Area Cont Eq vti 2.2 cm AV Area Cont Eq pk 2.1 cm Mitral E Point Velocity 71.1 cm/s Mitral A Point Velocity 61.2 cm/s Mitral E to A Ratio 1.2 LV E' Lateral Velocity 5.6 cm/s Mitral E to LV E' Lateral Ratio 12.7 LV E' Septal Velocity 5.5 cm/s Mitral E to LV E' Septal Ratio 12.8 PV Peak Velocity 61.7 cm/s PV Peak Gradient 1.5 mmHg FINDINGS LEFT VENTRICLE Mildly dilated left ventricle. Wall thickness is normal. The left ventricular systolic function is moderately reduced with an estimated ejection fraction of 40%. RIGHT VENTRICLE Normal right ventricular size and systolic function. LEFT ATRIUM The left atrial size is normal. RIGHT ATRIUM The right atrial size is normal. ATRIAL SEPTUM No atrial level shunt is demonstrated by color flow Doppler interrogation. AORTA The aortic root and proximal ascending aorta are normal in size on limited imaging. MITRAL VALVE Mild mitral valve regurgitation. AORTIC VALVE Trileaflet aortic valve. No aortic valve stenosis or regurgitation. TRICUSPID VALVE Structurally normal tricuspid valve. No tricuspid valve stenosis or regurgitation. PULMONARY VALVE No pulmonary valve regurgitation or stenosis. VESSELS The inferior vena cava is normal in size. PERICARDIUM No pericardial effusion. Scot Garza MD, FACC (Electronically Signed) Final Date:05 February 2018 13:11
== END 2018-02-05 15:50 | disposition home or self-care (01) | DRG 774 ==
LOC: HOBED 01:15 → HIMN 02:45
PROVIDERS: ADMIT Internal Medicine; ATTEND Internal Medicine
DX: O90.3 Peripartum cardiomyopathy (principal); O99.334 Smoking (tobacco) complicating childbirth; J96.90 Respiratory failure, unspecified, unspecified whether with hypoxia or hypercapnia; I50.21 Acute systolic (congestive) heart failure; I16.9 Hypertensive crisis, unspecified; O99.53 Diseases of the respiratory system complicating the puerperium; O14.15 Severe pre-eclampsia, complicating the puerperium; R79.89 Other specified abnormal findings of blood chemistry; E78.5 Hyperlipidemia, unspecified; O13.5 Gestational [pregnancy-induced] hypertension without significant proteinuria, complicating the puerperium; K59.00 Constipation, unspecified; F14.10 Cocaine abuse, uncomplicated; O90.89 Other complications of the puerperium, not elsewhere classified; F17.210 Nicotine dependence, cigarettes, uncomplicated; Z82.49 Family history of ischemic heart disease and other diseases of the circulatory system
CPT/HCPCS: 71045; 71275; 76705; 80053; 80074; 80307; 81001; 82310; 83036; 83605; 83735; 83880; 84100; 84439; 84443; 84484; 85025; 85384; 85610; 85730; 87641; 93005; 93306; 94640; 94664; 96361; 96374; J1650; J1940; J2270; J3475; J7030; J7050; Q9967